=== PATIENT | female | born 1955 | race Caucasian/White ===

== ENCOUNTER 2017-05-10 16:03 | Inpatient (IN) | payer OTHER, SELFPAY ==
[2017-04-08 12:53] VITALS: BMI 25.7
[2017-05-10] VITALS (9 sets, daily range): BP systolic 161–186; BP diastolic 74–92; PULSE 99–113; RESP 16–31; TEMP 36.6–37; O2SAT 93–99; BMI 26.8; BMI 27.1
--- NOTE | 2017-05-10 16:20 | EKG12_ITS ---
Test Reason : SOB Blood Pressure : / mmHG Vent. Rate : 110 BPM Atrial Rate : 110 BPM P-R Int : 116 ms QRS Dur : 084 ms QT Int : 324 ms P-R-T Axes : 049 049 095 degrees QTc Int : 438 ms Sinus tachycardia with occasional premature ectopic complexes Nonspecific ST and T wave abnormality Abnormal ECG Confirmed by JULIANA HICKS, SASCHA ([id number]), advertising editor KOREY COOPER ([id number]) on 05/12/2017 1:23:10 PM Referred By: DYLAN Confirmed By:SASCHA ANDREWS MD
--- NOTE | 2017-05-10 16:20 | RAD_ITS ---
STUDY: X-RAY CHEST REASON FOR EXAM: Female, 61 years old. Dyspnea with cough and back pain. TECHNIQUE: Single frontal view of the chest. COMPARISON: February 15, 2017 FINDINGS: Jugular catheter remains unchanged. There is a new opacity at the left base compatible with pneumonia. There is a small left effusion. Normal size heart. Normal mediastinum and klaus. Normal visualized pulmonary arteries. Normal visualized aortic arch and descending thoracic aorta. Normal visualized thoracic spine. Normal visualized ribs, clavicles, and shoulders. There is no demonstrated abnormality of the visualized soft tissue structures of the upper abdomen. RAD/Chest 1 View (Portable) IMPRESSION: New left lower lobe pneumonia with effusion. Electronically Signed: Teddy Humphrey MD at 17:15 EST , Service support ,
[2017-05-10] MEDS: Ipratropium/Albuterol Sulfate 3 ML AMPUL.NEB INHALATION ×2 (16:39→20:04)
[2017-05-10] MEDS: Albuterol 2.5 MG/3 ML VIAL.NEB. INHALATION (16:39)
[2017-05-10 16:54] LABS: Absolute Lymphocyte Count 0.41 X10^3/ul (0.83-4.51); Absolute Neutrophil Count 5.7 X10^3/uL (2.0-7.7); Basophil# 0.01 X10^3/uL; Basophil% 0.2 % (0-1); Hematocrit 28.4 % (37-47); Hemoglobin 9.2 g/dl (12.0-15.0); Lymphocyte # 0.41 X10^3/ul (4.0); Lymphocyte % 6.3 % (19-41); Mean Corp Hgb Conc 32.4 g/gl (32-36); Mean Corpuscular Hgb 28.9 pg (27.0-32.0); Mean Corpuscular Volume 89.3 fL (81-99); Mean Platelet Vol. 9.2 fl (6.2-12.0); Monocyte# 0.46 X10^3/uL; Neutrophil # 5.65 X10^3/uL (2.7-7.7); Platelet Count 130 K/mm3 (150-450); RBC Distribution Width CV 20.7 % (11.6-14.6); RBC Distribution Width SD 66.7 fl (35.1-43.9); Red Blood Count 3.18 M/mm3 (4.2-5.4); White Blood Count 6.6 K/mm3 (4.4-11.0)
[2017-05-10 16:55] LABS: Differential Indicated SCAN CRITERIA MET; POSITIVE COUNT NO; POSITIVE DIFFERENTIAL YES; POSITIVE MORPHOLOGY YES
[2017-05-10 17:07] LABS: Anion Gap 9 (5-15); BUN 22 mg/dL (7-18); BUN/Creat Ratio 39.2 RATIO (10-20); Calcium,Total 8.6 mg/dL (8.5-10.1); Chloride 101 mmol/L (98-107); Creatinine, Serum 0.56 mg/dL (0.55-1.02); EST Glomerular Filtration Rate 116 mL/min (>60); Est Glom Filt Rate - Afr Amer 140 mL/min (>60); Estimated Creatinine Clearance 88.79 ml/min; Glucose 190 mg/dL (74-106); Potassium 3.2 mmol/L (3.5-5.1); Sodium Level 139 mmol/L (136-145)
[2017-05-10 17:14] LABS: Anisocytosis 1+; Hypochromasia 2+; Platelet Estimate ADEQUATE (ADEQ)
[2017-05-10] MEDS: 0.9% Normal Saline 1,000 ML 150 ML IV (17:17)
[2017-05-10 17:25] LABS: BNP,B-Type NATRIURETIC PEPTIDE 110.9 pg/mL (0-100)
[2017-05-10 17:37] LABS: Lactic Acid 1.2 mmol/L (0.4-2.0)
--- NOTE | 2017-05-10 17:48 | ED.VISSUMM ---
- ER Visit Summary Date of Service: 05/10/17 Chief Complaint: Cough, shortness of breath History of Present Illness: The patient is a 61 F medical history significant for small cell lung cancer who is currently undergoing chemotherapy with Dr. Saldivar presents to the emergency department with cough and shortness of breath. The patient symptoms began about 5 days ago. She states she had a mild cough with some scant sputum. She states normally her cough is dry. She denies any fevers or chills. She states that she has begun to have some pain in her left back especially with coughing. She denies any recent antibiotics. She denies any chest pain but does admit to some mild shortness of breath. The patient did have chemotherapy on the first of this month. She denies any history of neutropenia. Physical Examination: Vital signs reviewed General: Well-nourished, well-developed Head: Normocephalic, atraumatic Eyes: Pupils equal and reactive, extraocular muscles intact Neck, supple, no lymphadenopathy Heart: Regular rate and rhythm Respiratory: Menest in the left base, mild wheezing Abdomen: Soft, nontender, nondistended, no peritoneal signs Back: Nontender Extremities: Nontender, no edema, no cords Skin: Normal color no rash Neuro: Alert and oriented, no focal or lateralizing deficits Test Results: Screening labs relatively unremarkable. Patient's lactate is normal. BNP is mildly elevated at 110. EKG shows a sinus tachycardia without acute ischemic change. Chest x-ray demonstrates a left lower lobe infiltrate. Emergency Department Course and Treatment: She did have wheezing throughout and was diminished in the left base. She was given breathing treatments with some improvement of her aeration. Her labs are relatively unremarkable. She has a normal lactate. The patient has been persistently tachycardic. Her x-ray does demonstrate a left lower lobe infiltrate with small effusion. With her history of immunosuppression, malignancy, and dyspnea I do for the patient's can require admission. She does not appear to have evidence of severe sepsis. She is treated with healthcare associated pneumonia antibiotics. I discussed the patient with oncology and the hospitalist. She will be admitted at this time. Treatment Plan: [] Disposition: [place] Impression:. Healthcare associated pneumonia 2. Dyspnea 3. Left pleural effusion This note was generated with [employer] software. It may contain incorrect words, spelling, and punctuation that were not noted in review of the chart prior to signing ED Disposition - Plan for ED Patient: Chief Complaint: Shortness of Breath Referrals: Roe Small MD [Primary Care Provider] -
--- NOTE | 2017-05-10 18:27 | PCM.HP.STD ---
Problem List (1) HTN (hypertension) Status: Chronic (2) GERD (gastroesophageal reflux disease) Status: Chronic (3) Hyponatremia Status: Chronic (4) Bone metastases Status: Chronic (5) HLD (hyperlipidemia) Status: Chronic (6) Liver metastases Status: Chronic (7) Small cell lung cancer Status: Chronic Qualifiers: (8) Stage 2 moderate COPD by GOLD classification Status: Chronic Comment: FEV1 54% History of Present Illness Date of Admission: 05/10/17 Chief Complaint: Cough, Shortness of breath. The patient is a 61 year old F with past medical history as mentioned above presented to the emergency room because of cough and shortness of breath. Her illness started 5 days ago with productive cough with small to moderate amount of yellow to clear sputum, associated with shortness of breath on mild to moderate activity which was relieved by rest and aggravated by activity. Denied fever or chills. She mentioned that she has been having left flank pain because of coughing. She denied chest pain, palpitation, dizziness or lightheadedness. She denied abdominal pain, nausea or vomiting. She had a history of metastatic small cell lung cancer with metastasis to liver and bone, status post radiation therapy and currently on chemotherapy, last session of chemotherapy was May 01, 2017. She had a history of COPD, quit smoking and she has been on inhaler treatment but never been on home oxygen. She has history of hypertension which seemed to be under control with metoprolol. In the emergency room, she was afebrile, tachycardic, blood pressure was elevated and pulse ox was 95% on room air. Her routine blood work was remarkable for hemoglobin of 9.2 g/dL, platelet count of 132,000 and potassium of 3.2, otherwise normal. Her lactic acid was normal. EKG revealed sinus tachycardia, no acute findings. Chest x-ray showed left lower lobe infiltrate and small effusion. She is being admitted for left lower lobe healthcare associated pneumonia with sepsis Past Medical History Past Medical History (Chronic Problems): Chronic Problems (Last Reviewed 04/17/17 @ 08:45 by Bhumika Barros) HTN (hypertension) (Chronic) Former smoker (Chronic) quit in July 2016 Colon polyps (Chronic) GERD (gastroesophageal reflux disease) (Chronic) Hyponatremia (Chronic) Bone metastases (Chronic) HLD (hyperlipidemia) (Chronic) Liver metastases (Chronic) Small cell lung cancer (Chronic) Stage 2 moderate COPD by GOLD classification (Chronic) FEV1 54% Allergies amlodipine Allergy (Severe, Verified 05/10/17 16:06) Swelling swelling in legs azithromycin Allergy (Severe, Verified 05/10/17 16:06) Pt doesn't remember lisinopril Adverse Reaction (Mild, Verified 05/10/17 16:06) Other COUGH Home Medications: Ambulatory Orders Medication Instructions Recorded Montelukast Sodium [Singulair] 10 mg PO QHS 06/08/16 Pravastatin Sodium 40 mg PO QHS 07/17/16 Budesonide/Formoterol 80-4.5 2 puff INHALATION BID 01/22/17 [Symbicort 80-4.5 Mcg Inhaler] Docusate Sodium [Colace] 100 mg PO DAILY 01/22/17 Metoprolol Tartrate [Lopressor 25 mg PO DAILY 01/22/17 (beta marzena)] Pantoprazole Sodium [Protonix] 20 mg PO DAILY PRN PRN 01/22/17 Acetaminophen [Tylenol Tablet] 325 - 650 mg PO Q6H PRN PRN tablet 01/23/17 Dronabinol [Marinol] 2.5 mg PO BIDAC #60 capsule 01/23/17 Mirtazapine [Remeron] 15 mg PO QHS #30 tab 04/16/17 Olanzapine 10 mg PO DAILY #30 tab 04/16/17 Potassium Phosphate,Monobasic 500 mg PO DAILY #30 tablet.[place] 05/01/17 [K-Phos Original] Dexamethasone 4 mg PO DAILY 05/10/17 Ondansetron [Zofran] 4 mg PO Q12H PRN PRN 05/10/17 Sodium Chloride 1 gm PO TID 05/10/17 Surgical History: noncontributory Psychiatric History: No pertinent psych hx [employer] History: No pertinent [employer] history Lives: Spouse/ Significant Other Smoking Status: Former smoker Alcohol: None Drugs: None - *Family History Maternal History Items: - - breast cancer Paternal History Items: Hypertension Review of Systems Constitutional: Reports: Anorexia. Denies: Chills, Fever, Weakness Eyes: Denies: Blurred vision, Double vision, Drainage, Redness HEENT: Denies: Difficulty Hearing, Ear Pain, Eye Pain, Nasal Congestion, Sore Throat Cardiovascular: Denies: Chest Pain, Chest Pressure, Heaviness, Light Headedness, Orthopnea, Paroxysmal Noc. Dyspnea, Syncope Respiratory: Reports: Cough, Shortness of Breath, Shortness of breath upon exertion, Sputum production. Denies: Hemoptysis, Pleuritic Pain, Wheezing Gastrointestinal: Denies: Abdominal Pain, Constipation, Diarrhea, Nausea, Vomiting Genitourinary: Denies: Dysuria, Frequency, Hematuria Musculoskeletal: Denies: Arm Pain, Back Pain Skin: Denies: Dryness, Rash Neurological: Denies: Balance problems, Double vision, Change in Speech, Slurred speech, Headaches, Incoordination, Numbness Psychiatric: Denies: Anxiety, Depression VTE Information - Inpt Only VTE Present on Admission: No VTE Mechan Device Prophylaxis: None VTE Pharm Prophylaxis ordered?: Yes - Physical Exam General: Alert, Oriented x3, Cooperative, No apparent distress HEENT: Atraumatic, PERRLA, EOMI Oral: Moist Mucosa, No Gingival or Mucosal Lesions/ Ulcerations Neck: Supple, No JVD, Negative Carotid Bruits, Trachea Midline, Thyroid Normal Size and Texture Lungs: No rhonchi, No wheeze, Diminished, Rales, - - decreased breath sounds on the left base, coarse crackles in the left base. Cardiovascular: Regular rate, Regular Rhythm, Normal S1, Normal S2, No murmurs, PMI Normal, Tachycardic Abdomen: Bowel Sounds Present, Soft, Non Tender, Non-Distended, No Hepato-splenomegaly Extremities: No clubbing, No cyanosis, Edema - Trace edema. Skin: No rashes, No breakdown Lymphatic: No Cervical, Supraclavicular, or Inguinal Adenopathy Neurological: Cranial nerves II-XII grossly intact, Motor Exam 5/5 strength throughout Psych/Mental Status: Normal Affect, Appropriate, Alert and oriented to time, place, person, mood and affect Vital Signs Temp Pulse Resp BP Pulse Ox 98.1 F 111 H 20 H 173/81 H 99 05/10/17 16:04 05/10/17 18:19 05/10/17 18:19 05/10/17 18:19 05/10/17 18:19 Oxygen Delivery Method Room Air Laboratory Tests 05/10/17 05/10/17 05/10/17 Range/Units 16:37 16:37 16:37 WBC (4.4-11.0) K/mm3 RBC (4.2-5.4) M/mm3 Hgb (12.0-15.0) g/dl Hct (37-47) % MCV (81-99) fL MCH (27.0-32.0) pg MCHC (32-36) g/gl RDW (11.6-14.6) % RDW Differential (35.1-43.9) fl Plt Count (150-450) K/mm3 MPV (6.2-12.0) fl Immature Gran % (Auto) (0.0-0.9) % Neut % (Auto) (47-70) % Lymph % (Auto) (19-41) % Dougherty % (Auto) (0-10) % Eos % (Auto) (0-5) % Baso % (Auto) (0-1) % Absolute Neuts (auto) (2.0-7.7) X10^3/uL Absolute Lymphs (auto) (0.83-4.51) X10^3/ul Total Counted Platelet Estimate (ADEQ) Hypochromasia Anisocytosis Sodium 139 (136-145) mmol/L Potassium 3.2 L (3.5-5.1) mmol/L Chloride 101 (98-107) mmol/L Carbon Dioxide 29.0 (21.0-32.0) mmol/L Anion Gap 9 (5-15) BUN 22 H (7-18) mg/dL Creatinine 0.56 (0.55-1.02) mg/dL Estim Creat Clear Calc 88.79 ml/min Est GFR (MDRD) Af Amer 140 (>60) mL/min Est GFR (MDRD) Non-Af 116 (>60) mL/min BUN/Creatinine Ratio 39.2 H (10-20) RATIO Glucose 190 H (74-106) mg/dL Lactic Acid 1.2 (0.4-2.0) mmol/L Calcium 8.6 (8.5-10.1) mg/dL B-Natriuretic Peptide 110.9 H (0-100) pg/mL 05/10/17 Range/Units 16:37 WBC 6.6 (4.4-11.0) K/mm3 RBC 3.18 L (4.2-5.4) M/mm3 Hgb 9.2 L (12.0-15.0) g/dl Hct 28.4 L (37-47) % MCV 89.3 (81-99) fL MCH 28.9 (27.0-32.0) pg MCHC 32.4 (32-36) g/gl RDW 20.7 H (11.6-14.6) % RDW Differential 66.7 H (35.1-43.9) fl Plt Count 130 L (150-450) K/mm3 MPV 9.2 (6.2-12.0) fl Immature Gran % (Auto) 0.500 (0.0-0.9) % Neut % (Auto) 86.0 H (47-70) % Lymph % (Auto) 6.3 L (19-41) % Dougherty % (Auto) 7.0 (0-10) % Eos % (Auto) 0.0 (0-5) % Baso % (Auto) 0.2 (0-1) % Absolute Neuts (auto) 5.7 (2.0-7.7) X10^3/uL Absolute Lymphs (auto) 0.41 L (0.83-4.51) X10^3/ul Total Counted Not Reportable Platelet Estimate ADEQUATE (ADEQ) Hypochromasia 2+ Anisocytosis 1+ Sodium (136-145) mmol/L Potassium (3.5-5.1) mmol/L Chloride (98-107) mmol/L Carbon Dioxide (21.0-32.0) mmol/L Anion Gap (5-15) BUN (7-18) mg/dL Creatinine (0.55-1.02) mg/dL Estim Creat Clear Calc ml/min Est GFR (MDRD) Af Amer (>60) mL/min Est GFR (MDRD) Non-Af (>60) mL/min BUN/Creatinine Ratio (10-20) RATIO Glucose (74-106) mg/dL Lactic Acid (0.4-2.0) mmol/L Calcium (8.5-10.1) mg/dL B-Natriuretic Peptide (0-100) pg/mL Clinical Impression(s) from Imaging Studies Chest X-Ray 05/10/17 16:20 IMPRESSION: New left lower lobe pneumonia with effusion. Electronically Signed: Teddy Humphrey MD at 17:15 EST , Service support , Assessment/Plan This is a 61 years old female patient presented to the emergency room because of productive cough and shortness of breath, found to have left lower lobe infiltrate consistent with left lower lobe healthcare associated pneumonia with sepsis. #1 left lower lobe healthcare associated pneumonia/sepsis: Chest x-ray reviewed. Patient is on chemotherapy for metastatic small cell lung cancer, last session was on May 01, 2017. She meets sepsis criteria based on tachycardia and documented source of infection. Blood culture sent, received 1 dose of IV vancomycin and Zosyn. Plan: Admit to [facility] floor, stat urinalysis, urine culture, sputum culture, respiratory panel for viruses, pneumococcal and Legionella antigen, start IV vancomycin and Zosyn, bronchodilators, incentive spirometer, chest physiotherapy, IV fluids, PT OT evaluation and treatment. #2 hypokalemia: Plan to replace potassium with potassium chloride added to the IV fluids, repeat BMP tomorrow morning. She is not on any diuretics. #3 metastatic small cell lung cancer: With metastasis to liver and bone. status post radiation therapy, currently on chemotherapy. He follows up with , he will be notified. #4 anemia/thrombocytopenia: This is likely because of chemotherapy. Her baseline hemoglobin has been around 11-12 g/dL. No evidence of active bleeding. No indication for transfusion. Platelet count is 130,000, actually improved from platelet count on May 01, 2017 which is likely because of chemotherapy. Plan to repeat CBC tomorrow morning, pro time and INR. #5 COPD: Clinically stable, pulse ox is normal on room air. Plan: DuoNeb every 6 hours, albuterol as needed, incentive spirometer, chest physiotherapy. #6 hypertension: Blood pressure is elevated. Continue metoprolol, start IV metoprolol as needed to treat both hypertension and tachycardia. #7 hyperlipidemia: Continue statins. #8 GERD: Continue PPI. #8 DVT prophylaxis: Subcu Lovenox, monitor platelet count. This note was generated with [employer] dictation software. It may contain incorrect words, spelling, and punctuation that were not noted in checking the note before signing. Code Visit Inpatient E&M: 04779 Init Hosp L3
--- NOTE | 2017-05-10 18:33 | HP.PCM_ITS ---
Problem List (1) HTN (hypertension) Status: Chronic (2) GERD (gastroesophageal reflux disease) Status: Chronic (3) Hyponatremia Status: Chronic (4) Bone metastases Status: Chronic (5) HLD (hyperlipidemia) Status: Chronic (6) Liver metastases Status: Chronic (7) Small cell lung cancer Status: Chronic Qualifiers: (8) Stage 2 moderate COPD by GOLD classification Status: Chronic Comment: FEV1 54% History of Present Illness Date of Admission: 05/10/17 Chief Complaint: Cough, Shortness of breath. The patient is a 61 year old F with past medical history as mentioned above presented to the emergency room because of cough and shortness of breath. Her illness started 5 days ago with productive cough with small to moderate amount of yellow to clear sputum, associated with shortness of breath on mild to moderate activity which was relieved by rest and aggravated by activity. Denied fever or chills. She mentioned that she has been having left flank pain because of coughing. She denied chest pain, palpitation, dizziness or lightheadedness. She denied abdominal pain, nausea or vomiting. She had a history of metastatic small cell lung cancer with metastasis to liver and bone, status post radiation therapy and currently on chemotherapy, last session of chemotherapy was May 01, 2017. She had a history of COPD, quit smoking and she has been on inhaler treatment but never been on home oxygen. She has history of hypertension which seemed to be under control with metoprolol. In the emergency room, she was afebrile, tachycardic, blood pressure was elevated and pulse ox was 95% on room air. Her routine blood work was remarkable for hemoglobin of 9.2 g/dL, platelet count of 132,000 and potassium of 3.2, otherwise normal. Her lactic acid was normal. EKG revealed sinus tachycardia, no acute findings. Chest x-ray showed left lower lobe infiltrate and small effusion. She is being admitted for left lower lobe healthcare associated pneumonia with sepsis Past Medical History Past Medical History (Chronic Problems): Chronic Problems (Last Reviewed 04/17/17 @ 08:45 by Bhumika Barros) HTN (hypertension) (Chronic) Former smoker (Chronic) quit in July 2016 Colon polyps (Chronic) GERD (gastroesophageal reflux disease) (Chronic) Hyponatremia (Chronic) Bone metastases (Chronic) HLD (hyperlipidemia) (Chronic) Liver metastases (Chronic) Small cell lung cancer (Chronic) Stage 2 moderate COPD by GOLD classification (Chronic) FEV1 54% Allergies amlodipine Allergy (Severe, Verified 05/10/17 16:06) Swelling swelling in legs azithromycin Allergy (Severe, Verified 05/10/17 16:06) Pt doesn't remember lisinopril Adverse Reaction (Mild, Verified 05/10/17 16:06) Other COUGH Home Medications: Ambulatory Orders Medication Instructions Recorded Montelukast Sodium [Singulair] 10 mg PO QHS 06/08/16 Pravastatin Sodium 40 mg PO QHS 07/17/16 Budesonide/Formoterol 80-4.5 2 puff INHALATION BID 01/22/17 [Symbicort 80-4.5 Mcg Inhaler] Docusate Sodium [Colace] 100 mg PO DAILY 01/22/17 Metoprolol Tartrate [Lopressor 25 mg PO DAILY 01/22/17 (beta marzena)] Pantoprazole Sodium [Protonix] 20 mg PO DAILY PRN PRN 01/22/17 Acetaminophen [Tylenol Tablet] 325 - 650 mg PO Q6H PRN PRN tablet 01/23/17 Dronabinol [Marinol] 2.5 mg PO BIDAC #60 capsule 01/23/17 Mirtazapine [Remeron] 15 mg PO QHS #30 tab 04/16/17 Olanzapine 10 mg PO DAILY #30 tab 04/16/17 Potassium Phosphate,Monobasic 500 mg PO DAILY #30 tablet.[place] 05/01/17 [K-Phos Original] Dexamethasone 4 mg PO DAILY 05/10/17 Ondansetron [Zofran] 4 mg PO Q12H PRN PRN 05/10/17 Sodium Chloride 1 gm PO TID 05/10/17 Surgical History: noncontributory Psychiatric History: No pertinent psych hx 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 Denies: Chills, Fever, Weakness Eyes: Denies: Blurred vision, Double vision, Drainage, Redness HEENT: Denies: Difficulty Hearing, Ear Pain, Eye Pain, Nasal Congestion, Sore Throat Cardiovascular: Denies: Chest Pain, Chest Pressure, Heaviness, Light Headedness , Orthopnea, Paroxysmal Noc. Dyspnea, Syncope Respiratory: Reports: Cough, Shortness of Breath, Shortness of breath upon exertion, Sputum production. Denies: Hemoptysis, Pleuritic Pain, Wheezing Gastrointestinal: Denies: Abdominal Pain, Constipation, Diarrhea, Nausea, Vomiting Genitourinary: Denies: Dysuria, Frequency, Hematuria Musculoskeletal: Denies: Arm Pain, Back Pain Skin: Denies: Dryness, Rash Neurological: Denies: Balance problems, Double vision, Change in Speech, Slurred speech, Headaches, Incoordination, Numbness Psychiatric: Denies: Anxiety, Depression VTE Information - Inpt Only VTE Present on Admission: No VTE Mechan Device Prophylaxis: None VTE Pharm Prophylaxis ordered?: Yes - Physical Exam General: Alert, Oriented x3, Cooperative, No apparent distress HEENT: Atraumatic, PERRLA, EOMI Oral: Moist Mucosa, No Gingival or Mucosal Lesions/ Ulcerations Neck: Supple, No JVD, Negative Carotid Bruits, Trachea Midline, Thyroid Normal Size and Texture Lungs: No rhonchi, No wheeze, Diminished, Rales, - - decreased breath sounds on the left base, coarse crackles in the left base. Cardiovascular: Regular rate, Regular Rhythm, Normal S1, Normal S2, No murmurs, PMI Normal, Tachycardic Abdomen: Bowel Sounds Present, Soft, Non Tender, Non-Distended, No Hepato- splenomegaly Extremities: No clubbing, No cyanosis, Edema - Trace edema. Skin: No rashes, No breakdown Lymphatic: No Cervical, Supraclavicular, or Inguinal Adenopathy Neurological: Cranial nerves II-XII grossly intact, Motor Exam 5/5 strength throughout Psych/Mental Status: Normal Affect, Appropriate, Alert and oriented to time, place, person, mood and affect Vital Signs Temp Pulse Resp BP Pulse Ox 98.1 F 111 H 20 H 173/81 H 99 05/10/17 16:04 05/10/17 18:19 05/10/17 18:19 05/10/17 18:19 05/10/17 18:19 Oxygen Delivery Method Room Air Laboratory Tests 3 05/10/17 05/10/17 05/10/17 Range/Units 16:37 16:37 16:37 WBC (4.4-11.0) K/mm3 RBC (4.2-5.4) M/mm3 Hgb (12.0-15.0) g/dl Hct (37-47) % MCV (81-99) fL MCH (27.0-32.0) pg MCHC (32-36) g/gl RDW (11.6-14.6) % RDW Differential (35.1-43.9) fl Plt Count (150-450) K/mm3 MPV (6.2-12.0) fl Immature Gran % (Auto) (0.0-0.9) % Neut % (Auto) (47-70) % Lymph % (Auto) (19-41) % [place] % (Auto) (0-10) % Eos % (Auto) (0-5) % Baso % (Auto) (0-1) % Absolute Neuts (auto) (2.0-7.7) X10^3/uL Absolute Lymphs (auto) (0.83-4.51) X10^3/ul Total Counted Platelet Estimate (ADEQ) Hypochromasia Anisocytosis Sodium 139 (136-145) mmol/L Potassium 3.2 L (3.5-5.1) mmol/L Chloride 101 (98-107) mmol/L Carbon Dioxide 29.0 (21.0-32.0) mmol/L Anion Gap 9 (5-15) BUN 22 H (7-18) mg/dL Creatinine 0.56 (0.55-1.02) mg/dL Estim Creat Clear Calc 88.79 ml/min Est GFR (MDRD) Af Amer 140 (>60) mL/min Est GFR (MDRD) Non-Af 116 (>60) mL/min BUN/Creatinine Ratio 39.2 H (10-20) RATIO Glucose 190 H (74-106) mg/dL Lactic Acid 1.2 (0.4-2.0) mmol/L Calcium 8.6 (8.5-10.1) mg/dL B-Natriuretic Peptide 110.9 H (0-100) pg/mL 3 05/10/17 Range/Units 16:37 WBC 6.6 (4.4-11.0) K/mm3 RBC 3.18 L (4.2-5.4) M/mm3 Hgb 9.2 L (12.0-15.0) g/dl Hct 28.4 L (37-47) % MCV 89.3 (81-99) fL MCH 28.9 (27.0-32.0) pg MCHC 32.4 (32-36) g/gl RDW 20.7 H (11.6-14.6) % RDW Differential 66.7 H (35.1-43.9) fl Plt Count 130 L (150-450) K/mm3 MPV 9.2 (6.2-12.0) fl Immature Gran % (Auto) 0.500 (0.0-0.9) % Neut % (Auto) 86.0 H (47-70) % Lymph % (Auto) 6.3 L (19-41) % [place] % (Auto) 7.0 (0-10) % Eos % (Auto) 0.0 (0-5) % Baso % (Auto) 0.2 (0-1) % Absolute Neuts (auto) 5.7 (2.0-7.7) X10^3/uL Absolute Lymphs (auto) 0.41 L (0.83-4.51) X10^3/ul Total Counted Not Reportable Platelet Estimate ADEQUATE (ADEQ) Hypochromasia 2+ Anisocytosis 1+ Sodium (136-145) mmol/L Potassium (3.5-5.1) mmol/L Chloride (98-107) mmol/L Carbon Dioxide (21.0-32.0) mmol/L Anion Gap (5-15) BUN (7-18) mg/dL Creatinine (0.55-1.02) mg/dL Estim Creat Clear Calc ml/min Est GFR (MDRD) Af Amer (>60) mL/min Est GFR (MDRD) Non-Af (>60) mL/min BUN/Creatinine Ratio (10-20) RATIO Glucose (74-106) mg/dL Lactic Acid (0.4-2.0) mmol/L Calcium (8.5-10.1) mg/dL B-Natriuretic Peptide (0-100) pg/mL Clinical Impression(s) from Imaging Studies Chest X-Ray 05/10/17 16:20 IMPRESSION: New left lower lobe pneumonia with effusion. Electronically Signed: Teddy Humphrey MD at 17:15 EST , Service support , Assessment/Plan This is a 61 years old female patient presented to the emergency room because of productive cough and shortness of breath, found to have left lower lobe infiltrate consistent with left lower lobe healthcare associated pneumonia with sepsis. #1 left lower lobe healthcare associated pneumonia/sepsis: Chest x-ray reviewed. Patient is on chemotherapy for metastatic small cell lung cancer, last session was on May 01, 2017. She meets sepsis criteria based on tachycardia and documented source of infection. Blood culture sent, received 1 dose of IV vancomycin and Zosyn. Plan: Admit to [facility] floor, stat urinalysis , urine culture, sputum culture, respiratory panel for viruses, pneumococcal and Legionella antigen, start IV vancomycin and Zosyn, bronchodilators, incentive spirometer, chest physiotherapy, IV fluids, PT OT evaluation and treatment. #2 hypokalemia: Plan to replace potassium with potassium chloride added to the IV fluids, repeat BMP tomorrow morning. She is not on any diuretics. #3 metastatic small cell lung cancer: With metastasis to liver and bone. status post radiation therapy, currently on chemotherapy. He follows up with , he will be notified. #4 anemia/thrombocytopenia: This is likely because of chemotherapy. Her baseline hemoglobin has been around 11-12 g/dL. No evidence of active bleeding. No indication for transfusion. Platelet count is 130,000, actually improved from platelet count on May 01, 2017 which is likely because of chemotherapy. Plan to repeat CBC tomorrow morning, pro time and INR. #5 COPD: Clinically stable, pulse ox is normal on room air. Plan: DuoNeb every 6 hours, albuterol as needed, incentive spirometer, chest physiotherapy. #6 hypertension: Blood pressure is elevated. Continue metoprolol, start IV metoprolol as needed to treat both hypertension and tachycardia. #7 hyperlipidemia: Continue statins. #8 GERD: Continue PPI. #8 DVT prophylaxis: Subcu Lovenox, monitor platelet count. This note was generated with [employer] dictation software. It may contain incorrect words, spelling, and punctuation that were not noted in checking the note before signing. Code Visit Inpatient E&M: 21770 Init Hosp L3
[2017-05-10 19:12] LABS: International Normalized Ratio 1.2; Prothrombin Time (Protime)PT. 14.8 SECONDS (11.7-14.9)
[2017-05-10 19:19] LABS: Magnesium 1.9 mg/dL (1.6-2.6)
[2017-05-10 20:18] LABS: Color, Urine Yellow (Yellow); Glucose, Dipstick 250 mg/dl (Normal); Ketone-Dipstick Negative (Negative); Leukocyte Esterase-Dipstick 25 /ul (Negative); Nitrite-Dipstick Negative (Negative); Occult Blood-Urine 50 /ul (Negative); Protein-Dipstick 100 mg/dl (Negative); Urine Bilirubin Dipstick Negative (Negative); Urine Clarity Clear (Clear); Urine Urobilinogen Normal (Normal)
[2017-05-10] MEDS: Montelukast 10 MG Tablet PO (22:41)
[2017-05-10] MEDS: Mirtazapine 15 MG Tablet PO (22:41)
[2017-05-10] MEDS: Pravastatin 40 MG Tablet PO (22:41)
[2017-05-10] MEDS: guaiFENesin 1,200 MG Tablet 1200 MG PO (22:41)
[2017-05-10] MEDS: Metoprolol Tartrate 5 MG/5 ML Vial IV (22:53)
[2017-05-11] VITALS (21 sets, daily range): BP systolic 153–194; BP diastolic 71–97; PULSE 86–120; RESP 16–20; TEMP 36.4–37; O2SAT 93–97
[2017-05-11] MEDS: guaiFENesin Dm 10 ML UDC PO ×2 (00:15→17:05)
[2017-05-11] MEDS: Ipratropium/Albuterol Sulfate 3 ML AMPUL.NEB INHALATION ×4 (00:43→19:24)
[2017-05-11] MEDS: Piperacil/Tazobactam 3.375 GM/50 ML ML IV ×3 (05:37→21:36)
[2017-05-11] MEDS: Enoxaparin 30 MG/0.3 ML Syringe SC (05:41)
[2017-05-11 07:13] LABS: Absolute Lymphocyte Count 0.14 X10^3/ul (0.83-4.51); Absolute Neutrophil Count 4.6 X10^3/uL (2.0-7.7); Basophil# 0.01 X10^3/uL; Basophil% 0.2 % (0-1); Hematocrit 27.5 % (37-47); Hemoglobin 8.8 g/dl (12.0-15.0); Lymphocyte # 0.14 X10^3/ul (4.0); Lymphocyte % 2.6 % (19-41); Mean Corpuscular Hgb 28.8 pg (27.0-32.0); Mean Corpuscular Volume 89.9 fL (81-99); Mean Platelet Vol. 8.8 fl (6.2-12.0); Monocyte# 0.52 X10^3/uL; Monocyte% 9.8 % (0-10); Neutrophil # 4.58 X10^3/uL (2.7-7.7); Neutrophil % 86.6 % (47-70); Platelet Count 127 K/mm3 (150-450); RBC Distribution Width CV 20.9 % (11.6-14.6); RBC Distribution Width SD 67.4 fl (35.1-43.9); Red Blood Count 3.06 M/mm3 (4.2-5.4); White Blood Count 5.3 K/mm3 (4.4-11.0)
[2017-05-11 07:15] LABS: Differential Indicated SCAN CRITERIA MET; POSITIVE COUNT NO; POSITIVE DIFFERENTIAL YES; POSITIVE MORPHOLOGY YES
[2017-05-11 07:20] LABS: Anion Gap 7 (5-15); BUN 10 mg/dL (7-18); BUN/Creat Ratio 33.9 RATIO (10-20); Calcium,Total 8.4 mg/dL (8.5-10.1); Chloride 103 mmol/L (98-107); EST Glomerular Filtration Rate 243 mL/min (>60); Est Glom Filt Rate - Afr Amer 294 mL/min (>60); Estimated Creatinine Clearance 165.75 ml/min; Glucose 143 mg/dL (74-106); Potassium 3.1 mmol/L (3.5-5.1); Sodium Level 136 mmol/L (136-145)
[2017-05-11 07:36] LABS: Anisocytosis 1+
[2017-05-11] MEDS: Metoprolol Tartrate 25 MG Tablet PO (07:50)
[2017-05-11] MEDS: OLANZapine 10 MG Tablet PO (07:50)
[2017-05-11] MEDS: Pantoprazole Sodium 40 MG Tablet PO (07:50)
[2017-05-11] MEDS: guaiFENesin 1,200 MG Tablet 1200 MG PO ×2 (07:50→21:36)
[2017-05-11] MEDS: Dronabinol 2.5 MG Capsule PO ×2 (08:00→17:05)
--- NOTE | 2017-05-11 09:01 | PN_ITS ---
Subjective: Chief complaint: Follow-up after admission for left lower lobe healthcare associated pneumonia with sepsis. Patient seen and examined. No acute events overnight. Shortness of breath improved, still complaining of dry cough, no sputum production. Her vital signs has been stable, afebrile overnight. - Physical Exam General: Alert, Oriented x3, Cooperative, No apparent distress HEENT: Atraumatic, PERRLA, EOMI Oral: Moist Mucosa, No Gingival or Mucosal Lesions/ Ulcerations Neck: Supple, No JVD, Negative Carotid Bruits, Trachea Midline, Thyroid Normal Size and Texture Lungs: No rhonchi, No wheeze, Diminished, Rales, - - Decreased breath sounds on the left base with crackles. Cardiovascular: Regular rate, Regular Rhythm, Normal S1, Normal S2, No murmurs, PMI Normal Abdomen: Bowel Sounds Present, Soft, Non Tender, Non-Distended, No Hepato- splenomegaly Extremities: No clubbing, No cyanosis, Edema - Trace edema. Skin: No rashes, No breakdown Lymphatic: No Cervical, Supraclavicular, or Inguinal Adenopathy Neurological: Cranial nerves II-XII grossly intact, Motor Exam 5/5 strength throughout Psych/Mental Status: Normal Affect, Appropriate Vital Signs Temp Pulse Resp BP Pulse Ox 98.6 F 98 18 153/71 H 96 05/11/17 07:54 05/11/17 07:54 05/11/17 07:54 05/11/17 07:54 05/11/17 07:54 Oxygen Delivery Method Room Air Weight: 158 lb 11.725 oz Body Mass Index (BMI) 27.1 Intake and Output for Last 24 Hours 05/09/17 05/10/17 05/11/17 23:59 23:59 23:59 Intake Total 1845 / 1845 Balance 1845 / 1845 Microbiology Past 72 Hours 05/10/17 19:35 Streptococcus pneumoniae Antigen (M - Final Urine, Clean Catch 05/10/17 19:35 Legionella Antigen - Final Urine, Clean Catch Laboratory Tests Past 24 Hrs 05/10/17 05/11/17 05/11/17 19:35 06:45 06:45 WBC 5.3 RBC 3.06 L Hgb 8.8 L Hct 27.5 L MCV 89.9 MCH 28.8 MCHC 32.0 RDW 20.9 H RDW Differential 67.4 H Plt Count 127 L MPV 8.8 Immature Gran % (Auto) 0.800 Neut % (Auto) 86.6 H Lymph % (Auto) 2.6 L [place] % (Auto) 9.8 Eos % (Auto) 0.0 Baso % (Auto) 0.2 Absolute Neuts (auto) 4.6 Absolute Lymphs (auto) 0.14 L Total Counted Not Reportable Anisocytosis 1+ Sodium 136 Potassium 3.1 L Chloride 103 Carbon Dioxide 26.0 Anion Gap 7 BUN 10 Creatinine 0.30 L Estim Creat Clear Calc 165.75 Est GFR (MDRD) Af Amer 294 Est GFR (MDRD) Non-Af 243 BUN/Creatinine Ratio 33.9 H Glucose 143 H Calcium 8.4 L Urine Color Yellow Urine Clarity Clear Urine pH 6.0 Ur Specific Sutter 1.020 Urine Protein 100 H Urine Glucose (UA) 250 H Urine Ketones Negative Urine Occult Blood 50 H Urine Nitrite Negative Urine Bilirubin Negative Urine Urobilinogen Normal Ur Leukocyte Esterase 25 H Assessment/Plan This is a 61 years old female patient presented to the emergency room because of productive cough and shortness of breath, found to have left lower lobe infiltrate consistent with left lower lobe healthcare associated pneumonia with sepsis. #1 left lower lobe healthcare associated pneumonia/sepsis: She is on IV Zosyn and vancomycin. Vital signs are stable, afebrile, less tachycardic. Pneumococcal and Legionella antigen were negative. Respiratory panel for viruses pending. Blood and sputum cultures are pending. Plan: Continue same treatment. #2 hypokalemia: Potassium is still low this morning at 3.1. She is on potassium replacement added to IV fluids. Plan: Continue IV fluids with potassium replacement, start oral replacement with K Dur, repeat BMP tomorrow morning. #3 hyperglycemia: On admission, blood glucose was 190, today's is 143. She is nondiabetic. She was on Decadron while in chemotherapy but she mentioned that she has been off Decadron. Plan: DC Decadron, hemoglobin A1c. #4 metastatic small cell lung cancer: With metastasis to liver and bone. status post radiation therapy, currently on chemotherapy. Oncology notified, patient will be seen tomorrow. #5 anemia/thrombocytopenia: This is likely because of chemotherapy. Today's hemoglobin is 8.8 g/dL. Her baseline hemoglobin has been around 11-12 g/dL. No evidence of active bleeding. No indication for transfusion. Platelet count is 127,000, actually improved from platelet count on May 01, 2017 which is likely because of chemotherapy. Pro time and INR were normal. #6 COPD: Clinically stable, pulse ox is normal on room air. Continue DuoNeb every 6 hours, albuterol as needed, incentive spirometer, chest physiotherapy. #7 hypertension: Blood pressure under better control. Continue metoprolol, continue IV metoprolol as needed to treat both hypertension and tachycardia. #8 hyperlipidemia: Continue statins. #9 GERD: Continue PPI. #10 DVT prophylaxis: Subcu Lovenox, monitor platelet count. This note was generated with [employer] dictation software. It may contain incorrect words, spelling, and punctuation that were not noted in checking the note before signing. Code Visit Inpatient E&M: 36219 Subs Hosp L2
[2017-05-11] MEDS: Metoprolol Tartrate 5 MG/5 ML Vial IV (17:05)
[2017-05-11 20:20] LABS: Vancomycin, Trough Level 9.4 ug/mL (5.0-15.0)
[2017-05-11] MEDS: Zolpidem Tartrate 5 MG Tablet PO (21:36)
[2017-05-11] MEDS: Montelukast 10 MG Tablet PO (21:36)
[2017-05-11] MEDS: Pravastatin 40 MG Tablet PO (21:36)
[2017-05-11] MEDS: Mirtazapine 15 MG Tablet PO (21:36)
[2017-05-12] VITALS (21 sets, daily range): BP systolic 142–208; BP diastolic 74–86; PULSE 70–133; RESP 18–26; TEMP 36.4–37.5; O2SAT 95–99
[2017-05-12] MEDS: guaiFENesin Dm 10 ML UDC PO (00:23)
[2017-05-12] MEDS: Ipratropium/Albuterol Sulfate 3 ML AMPUL.NEB INHALATION ×4 (00:30→19:11)
[2017-05-12 06:25] LABS: Anion Gap 9 (5-15); BUN 13 mg/dL (7-18); BUN/Creat Ratio 37.2 RATIO (10-20); Calcium,Total 8.3 mg/dL (8.5-10.1); Chloride 97 mmol/L (98-107); Creatinine, Serum 0.35 mg/dL (0.55-1.02); EST Glomerular Filtration Rate 200 mL/min (>60); Est Glom Filt Rate - Afr Amer 242 mL/min (>60); Estimated Creatinine Clearance 142.07 ml/min; Glucose 158 mg/dL (74-106); Potassium 3.6 mmol/L (3.5-5.1); Sodium Level 131 mmol/L (136-145)
[2017-05-12] MEDS: Piperacil/Tazobactam 3.375 GM/50 ML ML IV ×3 (06:51→22:35)
[2017-05-12] MEDS: Dronabinol 2.5 MG Capsule PO ×2 (07:01→15:38)
[2017-05-12] MEDS: Enoxaparin 30 MG/0.3 ML Syringe SC (07:01)
[2017-05-12] MEDS: Metoprolol Tartrate 25 MG Tablet PO (10:31)
[2017-05-12] MEDS: Pantoprazole Sodium 40 MG Tablet PO (10:31)
[2017-05-12] MEDS: OLANZapine 10 MG Tablet PO (10:31)
[2017-05-12] MEDS: guaiFENesin 1,200 MG Tablet 1200 MG PO ×2 (11:25→20:57)
--- NOTE | 2017-05-12 11:41 | PN_ITS ---
Patient Problems: Active and Suspected Problems (Last Reviewed 04/17/17 @ 08:45 by Bhumika Barros) COPD (chronic obstructive pulmonary disease) (Acute) Pneumonia (Acute) Subjective: Patient is a 61-year-old female with a past medical history of hypertension, GERD, former smoking hx ( quit 07/2016), hyponatremia, small cell lung cancer with bone metastasis and for metastasis, COPD and HLD who presented to the emergency room at [facility] on 05/10/2017 complaining of cough and shortness of breath. She had been treated in the past with radiation and is currently receiving chemotherapy. Last chemotherapy was 05/01/2017. Vital signs at presentation to the emergency room were temp 98.1, pulse rate 110, blood pressure 183/92, respiratory rate 24 and she was 95-99% saturated on room air. Blood cell count was normal at 6.6 and the percentage neutrophils was 86% . Hemoglobin is 9.2 and this has been steadily decreasing over the past year. Platelets were low at 130,000. Potassium was low at 3.2 and BUN was elevated at 22 with a creatinine of 0.56. Random glucose was 190 and the hemoglobin A1c is 7.0. Legionella and streptococcal antigens in the urine were negative and the respiratory panel was also negative. Sputum Gram stain showed 2+ white blood cells and 2+ gram-positive cocci in chains and clusters. Preliminary on the culture appears to be normal respiratory issac. Cultures are pending. Urine culture had no growth. Chest x-ray showed a new left lower lobe pneumonia with ?pleural effusion. She is coughing up yellow sputum now and it is usually clear. She has been afebrile since admission. Systolic blood pressure has been elevated and so is the resting heart rate. She is currently 97-98% saturated on room air. Sodium is low at 131 today and the chloride is 97. BUN is down to 13 from 22 at admission and the creatinine is 0.35. Fasting blood sugars have been elevated. - Physical Exam General: Alert, Oriented x3, Cooperative, - - She is tachypneic and has accessory muscle use with pursed lip breathing. She is not on any oxygen and she has conversational dyspnea HEENT: Atraumatic, PERRLA, EOMI, Normocephalic Oral: Moist Mucosa, No Gingival or Mucosal Lesions/ Ulcerations Neck: Supple, No JVD, No Nodes, Trachea Midline Lungs: Rales - left side laterally and few crackles in the left base.....BS's on the left side sound accentuated, Wheezes Cardiovascular: Regular Rhythm, Normal S1, Normal S2, Tachycardic - ST with PAC Abdomen: Bowel Sounds Present, Soft, Non Tender, Non-Distended Extremities: No clubbing, No cyanosis, - - she has edema of the ankles that is new Skin: No rashes, No breakdown Musculoskeletal: No Muscle Wasting Neurological: Cranial nerves II-XII grossly intact, Neuro grossly intact Psych/Mental Status: Normal Affect, Appropriate Vital Signs Temp Pulse Resp BP Pulse Ox 97.6 F L 100 22 H 157/77 H 97 05/12/17 07:52 05/12/17 10:31 05/12/17 07:52 05/12/17 07:52 05/12/17 07:52 Oxygen Delivery Method Room Air Weight: 158 lb 11.725 oz Body Mass Index (BMI) 27.1 Intake and Output for Last 24 Hours 05/10/17 05/11/17 05/12/17 23:59 23:59 23:59 Intake Total 2990 / 2990 490 / 490 Output Total 700 / 700 Balance 2990 / 2990 -210 / -210 Microbiology Past 72 Hours 05/10/17 19:55 Gram Stain - Final Sputum, Expectorated/Coughed Respiratory Culture - Preliminary Appears to be normal respiratory issac. Further studies to follow. 05/10/17 19:35 Urine Culture - Preliminary Urine, Clean Catch Culture exhibits no growth. 05/10/17 19:25 Respiratory Panel (PCR) - Final Mucosa - Nose 05/10/17 19:35 Streptococcus pneumoniae Antigen (M - Final Urine, Clean Catch 05/10/17 19:35 Legionella Antigen - Final Urine, Clean Catch Laboratory Tests Past 24 Hrs 05/11/17 05/12/17 19:25 05:40 Sodium 131 L Potassium 3.6 Chloride 97 L Carbon Dioxide 25.0 Anion Gap 9 BUN 13 Creatinine 0.35 L Estim Creat Clear Calc 142.07 Est GFR (MDRD) Af Amer 242 Est GFR (MDRD) Non-Af 200 BUN/Creatinine Ratio 37.2 H Glucose 158 H Calcium 8.3 L Vancomycin Trough 9.4 Assessment/Plan Active and Suspected Problems (Last Reviewed 01/18/18 @ 08:45 by Bhumika Barros) COPD (chronic obstructive pulmonary disease) (Acute) Pneumonia (Acute) Impressions 1. HCAP 2. acute exacerbation COPD 3. dehydration - better after IV fluids 4. 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 HTN 6. GERD 7. anemia and thrombocytopenia 8. COPD 9. HLD Check a MRSA nasal swab and if it is negative DC the Vanco await the final sputum culture results Add Solu-medrol Continue the aerosols IS Continue the PEP Repeat a CXR today If no improvement by tomorrow will consult pulmonary She is + 3,284 since admission Code Visit Inpatient E&M: 67621 Subs Hosp L2
--- NOTE | 2017-05-12 12:24 | ONC.CON.INP2 ---
- Problem List (1) Small cell lung cancer Status: Chronic Qualifiers: (2) Bone metastases Status: Chronic (3) Liver metastases Status: Chronic (4) COPD (chronic obstructive pulmonary disease) Status: Acute (5) Pneumonia Status: Acute Consult Referring Physician: Hospitalist service Consult Results: Metastatic small cell lung cancer Subjective Date of Service:: 05/12/17 Chief Complaint: COUGHING 5 DAYS, AND INCREASE IN SOB TODAY History of Present Illness: Patient is a 61-year-old female with extensive stage small cell lung cancer currently on systemic chemotherapy with cisplatin Irenotecan under the care of Dr. Huerta was last chemotherapy cycle on May 01, 2017 and admitted with increasing dyspnea, wheezing, cough, productive yellow colored sputum and one episode of minor hemoptysis on May 12. She has had no fevers or pleuritic type chest pain. Her chest x-ray shows a new left lower lobe infiltrate suggestive of pneumonia. Her oncologic history as summarized initially diagnosed with extensive stage small cell lung cancer in May 2016 with disease involvement of the left lung, mediastinum, liver, and bone metastases who received 6 cycles of cisplatin and Irinotecan completed in October 2016 followed by consolidative radiation therapy to the left lung disease due to having a partial response to chemotherapy with persistent disease in this area. Most recent imaging including bone scan (03/10/17), CT chest/abdomen (03/27/17), and left femur xray (04/03/17) shows evidence for disease progression of multiple liver lesions as well as multifocal osseous disease involving primarily the spine and pelvis. She received 2000 cGy of 15 MV photons in 5 fractions to the right proximal hip, right acetabulum, partial right sacrum, and right iliac bone for pain palliation 04/10/2017-04/16/2017 Past Medical History: Chronic Problems (Last Reviewed 04/17/17 @ 08:45 by Bhumika Barros) HTN (hypertension) (Chronic) Former smoker (Chronic) quit in July 2016 Colon polyps (Chronic) GERD (gastroesophageal reflux disease) (Chronic) Hyponatremia (Chronic) Bone metastases (Chronic) HLD (hyperlipidemia) (Chronic) Liver metastases (Chronic) Small cell lung cancer (Chronic) Stage 2 moderate COPD by GOLD classification (Chronic) FEV1 54% Past Medical/Surgical History: Past Medical History - Most Recent Inpatient Visit Past Medical History Start: 05/10/17 18:54 Text: Status: Complete Freq: ONCE Protocol: Document 02/10/18 18:54 [facility] (Rec: 05/10/17 19:15 [facility] [id number]) BMI Required to complete PMH What is Patient's BMI 27.1 Past Medical History Unable History Recalled No Query Text:Pt Unable/Family Not Present Neurologic Medical History Hx Stroke/TIA No Hx Dementia/Alzheimer's No Hx Parkinson's Disease No Hx Seizures No Hx Multiple Sclerosis No Hx Migraines No Cardiac Medical History VTE Present on Admission No Hx of Deep Vein Thrombosis/VTE/PE No Hx Hypertension Yes Hx Chest Pain/Angina No Hx Heart Attack No Hx Cardiac Surgery/Stents/Etc. Yes: heart cath neg 3 mos ago Hx Heart Failure No Hx Pacemaker/AICD No Hx Irregular Heartbeat and/or Afib Yes: irreg Hx Anticoagulant Therapy No Query Text:(Coumadin, Aspirin, Plavix, Xarelto, etc.) Hx Pain in Legs when Walking/Leg Cramps No Respiratory Medical History Hx COPD Yes Hx Emphysema No Hx Smoking Yes Smoking Status Former smoker Hx Smoking Cessation Counseling No Hx Smoking Exposure Yes Hx Tobacco Use in last 12 months No Hx of Pipe Smoking No Hx Sleep Apnea No CPAP No Do you snore loudly (louder than talking No or can be heard through closed doors)? Do you often feel tired/ fatigued/ No sleepy during daytime? Has anyone observed you stop breathing No during sleep? STOP Results Negative GI Medical History Hx Ulcer No Hx Hepatitis No Hx Cirrhosis No Hx GI Bleed No Hx Unplanned Weight Loss Yes: after diagnosed with cancer Genitourinary Medical History Indwelling Catheter in Place on Arrival/ No Admission Hx Renal Disease No Hx Dialysis No Musculoskeletal History Hx Arthritis No Hx Rheumatoid Arthritis No Endocrine Medical History Hx Diabetes No Hx Thyroid Disease No Hematologic Medical History Hx of Blood Transfusion No Hx of Transfusion in last 3 Months No Ever experience any problems with No transfusion(s)? Hx of Preganancy in last 3 Months No Nurse Filling Out Transfusion & BHICKEY Questions: Date: 05/10/17 Time: 19:14 Psycho/Social Medical History Hx Depression No Hx Anxiety No Hx Behavior Disorder No Hx Alcohol Use No Hx Substance Use No Other Medical History Hx Blood Disorders No Hx Anemia No Hx Cancer Yes: SMALL CELL LUNG CANCER, mets to liver & rt femur Hx Drug Resistant Organism No Wound/Pressure Injury Present on Arrival No /Admission Query Text:If yes, chart assessment in Shift/Clinical Findings Central Line/PICC/VAD Present on Arrival No /Admission Antibiotics within last 7 days? No Risk for Readmission Number of Risk Factors 3 At Risk for Readmission Patient is At Risk For Readmission Patient is eligible for Call Back Y Past Medical History (Last Reviewed 04/17/17 @ 08:45 by Bhumika Barros) EBUS (Acute) History of carpal tunnel release (Acute) History of mumps (Acute) History of pneumonia (Acute) Measles (Acute) med port placement (Acute) Past Surgical History (Last Reviewed 04/17/17 @ 08:45 by Bhumika Barros) H/O lumpectomy (Acute) Maternal Family History: Family History (Last Reviewed 04/17/17 @ 08:45 by Bhumika Barros) Mother CVA (cerebral vascular accident) Father CVA (cerebral vascular accident) Family History: - - breast cancer Paternal Family History: Family History (Last Reviewed 04/17/17 @ 08:45 by Bhumika Barros) Mother CVA (cerebral vascular accident) Father CVA (cerebral vascular accident) Family History: Hypertension - Social History Lives: Spouse/ Significant Other Smoking Status: Former smoker Alcohol: None Drugs: None Allergies/Adverse Reactions: Allergy/AdvReac Type Severity Reaction Status Date / Time amlodipine Allergy Severe Swelling Verified 05/10/17 16:06 azithromycin Allergy Severe Pt doesn't Verified 05/10/17 16:06 remember lisinopril AdvReac Mild Other Verified 05/10/17 16:06 Home Medications Medication Instructions Recorded Montelukast Sodium [Singulair] 10 mg PO QHS 06/08/16 Pravastatin Sodium 40 mg PO QHS 07/17/16 Budesonide/Formoterol 80-4.5 2 puff INHALATION BID 01/22/17 [Symbicort 80-4.5 Mcg Inhaler] Docusate Sodium [Colace] 100 mg PO DAILY 01/22/17 Metoprolol Tartrate [Lopressor 25 mg PO DAILY 01/22/17 (beta marzena)] Pantoprazole Sodium [Protonix] 20 mg PO DAILY PRN PRN 01/22/17 Acetaminophen [Tylenol Tablet] 325 - 650 mg PO Q6H PRN PRN tablet 01/23/17 Dronabinol [Marinol] 2.5 mg PO BIDAC #60 capsule 01/23/17 Mirtazapine [Remeron] 15 mg PO QHS #30 tab 04/16/17 Olanzapine 10 mg PO DAILY #30 tab 04/16/17 Potassium Phosphate,Monobasic 500 mg PO DAILY #30 tablet.carolina 05/01/17 [K-Phos Original] Dexamethasone 4 mg PO DAILY 05/10/17 Naproxen [Naprosyn] 250 mg PO DAILY PRN PRN 05/10/17 Ondansetron [Zofran] 4 mg PO Q12H PRN PRN 05/10/17 Pyridoxine HCl [Vitamin B-6] 100 mg PO DAILY 05/10/17 Sodium Chloride 1 gm PO TID 05/10/17 Review of Systems Constitutional:: Reports: Weakness, Fatigue, Appetite change. Denies: Fever, Sweats, Weight loss, Chills Cardiovascular:: Reports: Dyspnea on exertion. Denies: Chest pain, Palpitations, Orthopnea, PND, Shortness of breath Respiratory: Reports: Cough, Hemoptysis, Shortness of breath upon exertion, Sputum production, Wheezing. Denies: Shortness of Breath Gastrointestinal:: Denies: Abdominal pain, Nausea, Vomiting, Diarrhea, Constipation, Hematochezia Genitourinary: Denies: Dysuria, Hematuria, 15, Flank pain Musculoskeletal:: Denies: Back pain, Myalgia, Arthralgia Skin: Denies: Rash, Skin Changes, Wounds Neurological:: Denies: Headache, Dizziness, Visual changes, Tinnitus, Hearing loss Psychiatric: Denies: Anxiety, Depression, Homicidal Ideations, Suicidal Ideations Vital Signs Height 5 ft 4.17 in Weight: 72 kg Weight in Pounds 158.7 lbs Pulse Ox 97 Temperature 97.6 F Pulse Rate 100 Respiratory Rate 22 Blood Pressure [BP] 154/79 Blood Pressure 157/77 Blood Pressure Position [BP] Semi-Fowlers Blood Pressure Position Sitting - Physical Exam General: Alert, Oriented x3, No apparent distress, - - ECOG 2 HEENT: Atraumatic, PERRLA, EOMI, Normocephalic Oropharynx:: Dry mucosa Neck:: Supple, Trachea midline, - - Porte okay. Negative for: JVD, bilateral Cardiac:: Regular rate, Regular rhythm, Normal S1, Normal S2. Negative for: Murmur Lungs: Clear to auscultation, Wheezes, Diminished, Excusion symmetrical. Negative for: Rhonchi Abdomen:: Soft, Non-tender, Non-distended. Negative for: Hepatosplenomegaly Extremities:: Edema - Minimal ankles. Negative for: Cyanosis Neurological: Neuro grossly intact Skin:: Negative for: Lesions, Rash, Petechiae, Ecchymosis Psychiatric:: Appropriate affect, Euthymic Lymphatics:: Negative for: Cervical lymphadenopathy, Supraclavicular lymphadenopathy, Axillary lymphadenopathy Laboratory Data: Microbiology 05/10/17 19:55 Gram Stain - Final Sputum, Expectorated/Coughed Respiratory Culture - Preliminary Appears to be normal respiratory issac. Further studies to follow. 05/10/17 19:35 Urine Culture - Preliminary Urine, Clean Catch Culture exhibits no growth. 05/10/17 19:25 Respiratory Panel (PCR) - Final Mucosa - Nose 05/10/17 19:35 Streptococcus pneumoniae Antigen (M - Final Urine, Clean Catch 05/10/17 19:35 Legionella Antigen - Final Urine, Clean Catch Laboratory Tests 05/12/17 05/11/17 Range/Units 05:40 19:25 Sodium 131 L (136-145) mmol/L Potassium 3.6 (3.5-5.1) mmol/L Chloride 97 L (98-107) mmol/L Carbon Dioxide 25.0 (21.0-32.0) mmol/L Anion Gap 9 (5-15) BUN 13 (7-18) mg/dL Creatinine 0.35 L (0.55-1.02) mg/dL Estim Creat Clear Calc 142.07 ml/min Est GFR (MDRD) Af Amer 242 (>60) mL/min Est GFR (MDRD) Non-Af 200 (>60) mL/min BUN/Creatinine Ratio 37.2 H (10-20) RATIO Glucose 158 H (74-106) mg/dL Calcium 8.3 L (8.5-10.1) mg/dL Vancomycin Trough 9.4 (5.0-15.0) ug/mL Laboratory Tests 05/11/17 06:45 WBC 5.3 Hgb 8.8 L Hct 27.5 L Plt Count 127 L Absolute Neuts (auto) 4.6 Diagnostic Data: Diagnostic Data Chest X-Ray 05/10/17 16:20 IMPRESSION: New left lower lobe pneumonia with effusion. Electronically Signed: Teddy Humphrey MD at 17:15 EST , Service support , Assessment and Plan 61-year-old female with extensive stage IV small cell lung cancer relapse following initial treatment in 2017 (see HPI for summary) currently on systemic chemotherapy cisplatin Irenotecan last cycle May 01, 2017 admitted with increasing dyspnea, wheezing, cough, sputum production and one episode of minor hemoptysis. Chest x-ray reveals a new left lower lobe infiltrate. On clinical grounds these findings are most suggestive of respiratory infection on top of COPD. From the hematology oncology point of care she is not neutropenic and has a moderately severe anemia consistent with cancer and chemotherapy. Her chemotherapy which was due this week will be held while she recovers from this acute illness. Defer to primary service for choice of antimicrobial treatment of her respiratory infection. We will follow-up after discharge. Discussed with patient and Medications: Prescriptions This Visit Medication Instructions Recorded Dexamethasone 4 mg PO DAILY 05/10/17 Naproxen [Naprosyn] 250 mg PO DAILY PRN PRN 05/10/17 Ondansetron [Zofran] 4 mg PO Q12H PRN PRN 05/10/17 Pyridoxine HCl [Vitamin B-6] 100 mg PO DAILY 05/10/17 Sodium Chloride 1 gm PO TID 05/10/17 Primary Care Provider: Roe Small Referring Provider:
--- NOTE | 2017-05-12 12:35 | CON.PCM_ITS ---
- Problem List (1) Small cell lung cancer Status: Chronic Qualifiers: (2) Bone metastases Status: Chronic (3) Liver metastases Status: Chronic (4) COPD (chronic obstructive pulmonary disease) Status: Acute (5) Pneumonia Status: Acute Consult Referring Physician: Hospitalist service Consult Results: Metastatic small cell lung cancer Subjective Date of Service:: 05/12/17 Chief Complaint: COUGHING 5 DAYS, AND INCREASE IN SOB TODAY History of Present Illness: Patient is a 61-year-old female with extensive stage small cell lung cancer currently on systemic chemotherapy with cisplatin Irenotecan under the care of Dr. Huerta was last chemotherapy cycle on May 01, 2017 and admitted with increasing dyspnea, wheezing, cough, productive yellow colored sputum and one episode of minor hemoptysis on May 12. She has had no fevers or pleuritic type chest pain. Her chest x-ray shows a new left lower lobe infiltrate suggestive of pneumonia. Her oncologic history as summarized initially diagnosed with extensive stage small cell lung cancer in May 2016 with disease involvement of the left lung, mediastinum, liver, and bone metastases who received 6 cycles of cisplatin and Irinotecan completed in October 2016 followed by consolidative radiation therapy to the left lung disease due to having a partial response to chemotherapy with persistent disease in this area. Most recent imaging including bone scan (03/10), CT chest/abdomen (03/27/17), and left femur xray (04/03/17) shows evidence for disease progression of multiple liver lesions as well as multifocal osseous disease involving primarily the spine and pelvis. She received 2000 cGy of 15 MV photons in 5 fractions to the right proximal hip , right acetabulum, partial right sacrum, and right iliac bone for pain palliation 04/10/2017-04/16/2017 Past Medical History: Chronic Problems (Last Reviewed 04/17/17 @ 08:45 by Bhumika Barros) HTN (hypertension) (Chronic) Former smoker (Chronic) quit in July 2016 Colon polyps (Chronic) GERD (gastroesophageal reflux disease) (Chronic) Hyponatremia (Chronic) Bone metastases (Chronic) HLD (hyperlipidemia) (Chronic) Liver metastases (Chronic) Small cell lung cancer (Chronic) Stage 2 moderate COPD by GOLD classification (Chronic) FEV1 54% Past Medical/Surgical History: Past Medical History - Most Recent Inpatient Visit Past Medical History Start: 05/10/17 18: 54 Text: Status: Complete Freq: ONCE Protocol: Document 02/10/18 18:54 [facility] (Rec: 05/10/17 19:15 [facility] [id number]) BMI Required to complete PMH What is Patient's BMI 27.1 Past Medical History Unable History Recalled No Query Text:Pt Unable/Family Not Present Neurologic Medical History Hx Stroke/TIA No Hx Dementia/Alzheimer's No Hx Parkinson's Disease No Hx Seizures No Hx Multiple Sclerosis No Hx Migraines No Cardiac Medical History VTE Present on Admission No Hx of Deep Vein Thrombosis/VTE/PE No Hx Hypertension Yes Hx Chest Pain/Angina No Hx Heart Attack No Hx Cardiac Surgery/Stents/Etc. Yes: heart cath neg 3 mos ago Hx Heart Failure No Hx Pacemaker/AICD No Hx Irregular Heartbeat and/or Afib Yes: irreg Hx Anticoagulant Therapy No Query Text:(Coumadin, Aspirin, Plavix, Xarelto, etc.) Hx Pain in Legs when Walking/Leg Cramps No Respiratory Medical History Hx COPD Yes Hx Emphysema No Hx Smoking Yes Smoking Status Former smoker Hx Smoking Cessation Counseling No Hx Smoking Exposure Yes Hx Tobacco Use in last 12 months No Hx of Pipe Smoking No Hx Sleep Apnea No CPAP No Do you snore loudly (louder than talking No or can be heard through closed doors)? Do you often feel tired/ fatigued/ No sleepy during daytime? Has anyone observed you stop breathing No during sleep? STOP Results Negative GI Medical History Hx Ulcer No Hx Hepatitis No Hx Cirrhosis No Hx GI Bleed No Hx Unplanned Weight Loss Yes: after diagnosed with cancer Genitourinary Medical History Indwelling Catheter in Place on Arrival/ No Admission Hx Renal Disease No Hx Dialysis No Musculoskeletal History Hx Arthritis No Hx Rheumatoid Arthritis No Endocrine Medical History Hx Diabetes No Hx Thyroid Disease No Hematologic Medical History Hx of Blood Transfusion No Hx of Transfusion in last 3 Months No Ever experience any problems with No transfusion(s)? Hx of Preganancy in last 3 Months No Nurse Filling Out Transfusion & BHICKEY Questions: Date: 05/10/17 Time: 19:14 Psycho/Social Medical History Hx Depression No Hx Anxiety No Hx Behavior Disorder No Hx Alcohol Use No Hx Substance Use No Other Medical History Hx Blood Disorders No Hx Anemia No Hx Cancer Yes: SMALL CELL LUNG CANCER, mets to liver & rt femur Hx Drug Resistant Organism No Wound/Pressure Injury Present on Arrival No /Admission Query Text:If yes, chart assessment in Shift/Clinical Findings Central Line/PICC/VAD Present on Arrival No /Admission Antibiotics within last 7 days? No Risk for Readmission Number of Risk Factors 3 At Risk for Readmission Patient is At Risk For Readmission Patient is eligible for Call Back Y Past Medical History (Last Reviewed 04/17/17 @ 08:45 by Bhumika Barros) EBUS (Acute) History of carpal tunnel release (Acute) History of mumps (Acute) History of pneumonia (Acute) Measles (Acute) med port placement (Acute) Past Surgical History (Last Reviewed 04/17/17 @ 08:45 by Bhumika Barros) H/O lumpectomy (Acute) Maternal Family History: Family History (Last Reviewed 04/17/17 @ 08:45 by Bhumika Barros) Mother CVA (cerebral vascular accident) Father CVA (cerebral vascular accident) Family History: - - breast cancer Paternal Family History: Family History (Last Reviewed 04/17/17 @ 08:45 by Bhumika Barros) Mother CVA (cerebral vascular accident) Father CVA (cerebral vascular accident) Family History: Hypertension - Social History Lives: Spouse/ Significant Other Smoking Status: Former smoker Alcohol: None Drugs: None Allergies/Adverse Reactions: Allergy/AdvReac Type Severity Reaction Status Date / Time amlodipine Allergy Severe Swelling Verified 05/10/17 16:06 azithromycin Allergy Severe Pt doesn't Verified 05/10/17 16:06 remember lisinopril AdvReac Mild Other Verified 05/10/17 16:06 Home Medications Medication Instructions Recorded Montelukast Sodium [Singulair] 10 mg PO QHS 06/08/16 Pravastatin Sodium 40 mg PO QHS 07/17/16 Budesonide/Formoterol 80-4.5 2 puff INHALATION BID 01/22/17 [Symbicort 80-4.5 Mcg Inhaler] Docusate Sodium [Colace] 100 mg PO DAILY 01/22/17 Metoprolol Tartrate [Lopressor 25 mg PO DAILY 01/22/17 (beta marzena)] Pantoprazole Sodium [Protonix] 20 mg PO DAILY PRN PRN 01/22/17 Acetaminophen [Tylenol Tablet] 325 - 650 mg PO Q6H PRN PRN tablet 01/23/17 Dronabinol [Marinol] 2.5 mg PO BIDAC #60 capsule 01/23/17 Mirtazapine [Remeron] 15 mg PO QHS #30 tab 04/16/17 Olanzapine 10 mg PO DAILY #30 tab 04/16/17 Potassium Phosphate,Monobasic 500 mg PO DAILY #30 tablet.carolina 05/01/17 [K-Phos Original] Dexamethasone 4 mg PO DAILY 05/10/17 Naproxen [Naprosyn] 250 mg PO DAILY PRN PRN 05/10/17 Ondansetron [Zofran] 4 mg PO Q12H PRN PRN 05/10/17 Pyridoxine HCl [Vitamin B-6] 100 mg PO DAILY 05/10/17 Sodium Chloride 1 gm PO TID 05/10/17 Review of Systems Constitutional:: Reports: Weakness, Fatigue, Appetite change. Denies: Fever, Sweats, Weight loss, Chills Cardiovascular:: Reports: Dyspnea on exertion. Denies: Chest pain, Palpitations , Orthopnea, PND, Shortness of breath Respiratory: Reports: Cough, Hemoptysis, Shortness of breath upon exertion, Sputum production, Wheezing. Denies: Shortness of Breath Gastrointestinal:: Denies: Abdominal pain, Nausea, Vomiting, Diarrhea, Constipation, Hematochezia Genitourinary: Denies: Dysuria, Hematuria, 15, Flank pain Musculoskeletal:: Denies: Back pain, Myalgia, Arthralgia Skin: Denies: Rash, Skin Changes, Wounds Neurological:: Denies: Headache, Dizziness, Visual changes, Tinnitus, Hearing loss Psychiatric: Denies: Anxiety, Depression, Homicidal Ideations, Suicidal Ideations Vital Signs Height 5 ft 4.17 in Weight: 72 kg Weight in Pounds 158.7 lbs Pulse Ox 97 Temperature 97.6 F Pulse Rate 100 Respiratory Rate 22 Blood Pressure [BP] 154/79 Blood Pressure 157/77 Blood Pressure Position [BP] Semi-Fowlers Blood Pressure Position Sitting - Physical Exam General: Alert, Oriented x3, No apparent distress, - - ECOG 2 HEENT: Atraumatic, PERRLA, EOMI, Normocephalic Oropharynx:: Dry mucosa Neck:: Supple, Trachea midline, - - Porte okay. Negative for: JVD, bilateral Cardiac:: Regular rate, Regular rhythm, Normal S1, Normal S2. Negative for: Murmur Lungs: Clear to auscultation, Wheezes, Diminished, Excusion symmetrical. Negative for: Rhonchi Abdomen:: Soft, Non-tender, Non-distended. Negative for: Hepatosplenomegaly Extremities:: Edema - Minimal ankles. Negative for: Cyanosis Neurological: Neuro grossly intact Skin:: Negative for: Lesions, Rash, Petechiae, Ecchymosis Psychiatric:: Appropriate affect, Euthymic Lymphatics:: Negative for: Cervical lymphadenopathy, Supraclavicular lymphadenopathy, Axillary lymphadenopathy Laboratory Data: Microbiology 05/10/17 19:55 Gram Stain - Final Sputum, Expectorated/Coughed Respiratory Culture - Preliminary Appears to be normal respiratory issac. Further studies to follow. 05/10/17 19:35 Urine Culture - Preliminary Urine, Clean Catch Culture exhibits no growth. 05/10/17 19:25 Respiratory Panel (PCR) - Final Mucosa - Nose 05/10/17 19:35 Streptococcus pneumoniae Antigen (M - Final Urine, Clean Catch 05/10/17 19:35 Legionella Antigen - Final Urine, Clean Catch Laboratory Tests 3 05/12/17 05/11/17 Range/Units 05:40 19:25 Sodium 131 L (136-145) mmol/L Potassium 3.6 (3.5-5.1) mmol/L Chloride 97 L (98-107) mmol/L Carbon Dioxide 25.0 (21.0-32.0) mmol/L Anion Gap 9 (5-15) BUN 13 (7-18) mg/dL Creatinine 0.35 L (0.55-1.02) mg/dL Estim Creat Clear Calc 142.07 ml/min Est GFR (MDRD) Af Amer 242 (>60) mL/min Est GFR (MDRD) Non-Af 200 (>60) mL/min BUN/Creatinine Ratio 37.2 H (10-20) RATIO Glucose 158 H (74-106) mg/dL Calcium 8.3 L (8.5-10.1) mg/dL Vancomycin Trough 9.4 (5.0-15.0) ug/mL Laboratory Tests 05/11/17 06:45 WBC 5.3 Hgb 8.8 L Hct 27.5 L Plt Count 127 L Absolute Neuts (auto) 4.6 Diagnostic Data: Diagnostic Data Chest X-Ray 05/10/17 16:20 IMPRESSION: New left lower lobe pneumonia with effusion. Electronically Signed: Teddy Humphrey MD at 17:15 EST , Service support , Assessment and Plan 61-year-old female with extensive stage IV small cell lung cancer relapse following initial treatment in 2017 (see HPI for summary) currently on systemic chemotherapy cisplatin Irenotecan last cycle May 01, 2017 admitted with increasing dyspnea, wheezing, cough, sputum production and one episode of minor hemoptysis. Chest x-ray reveals a new left lower lobe infiltrate. On clinical grounds these findings are most suggestive of respiratory infection on top of COPD. From the hematology oncology point of care she is not neutropenic and has a moderately severe anemia consistent with cancer and chemotherapy. Her chemotherapy which was due this week will be held while she recovers from this acute illness. Defer to primary service for choice of antimicrobial treatment of her respiratory infection. We will follow-up after discharge. Discussed with patient and Medications: Prescriptions This Visit Medication Instructions Recorded Dexamethasone 4 mg PO DAILY 05/10/17 Naproxen [Naprosyn] 250 mg PO DAILY PRN PRN 05/10/17 Ondansetron [Zofran] 4 mg PO Q12H PRN PRN 05/10/17 Pyridoxine HCl [Vitamin B-6] 100 mg PO DAILY 05/10/17 Sodium Chloride 1 gm PO TID 05/10/17 Primary Care Provider: Roe Small Referring Provider:
--- NOTE | 2017-05-12 14:15 | RAD_ITS ---
STUDY: X-RAY CHEST REASON FOR EXAM: Female, 61 years old. Dyspnea. Left lower lobe pneumonia. Lung cancer TECHNIQUE: PA and lateral views of the chest. COMPARISON: Chest x-ray on May 10, 2017. FINDINGS: There is a right MediPort extending to the SVC. EKG leads are in place There is a persistent left lower lobe infiltrate. There is a persistent left pleural effusion Normal size heart. Normal mediastinum and klaus. Normal visualized pulmonary arteries. Normal visualized aortic arch and descending thoracic aorta. There are diffuse degenerative changes of the visualized thoracic spine. Normal visualized ribs, clavicles, and shoulders. There is no demonstrated abnormality of the visualized soft tissue structures of the upper abdomen. RAD/Chest PA and Lateral IMPRESSION: Persistent left lower lobe infiltrate and left pleural effusion Electronically Signed: Satnam Oswald MD, FACR at 15:23 EST , Service support ,
[2017-05-12] MEDS: Metoprolol Tartrate 5 MG/5 ML Vial IV (18:27)
[2017-05-12 20:06] LABS: M R Staph aureus DNA By PCR Negative (Negative); Probe Check PASS; Specimen Processing Control PASS
[2017-05-12] MEDS: Mirtazapine 15 MG Tablet PO (20:57)
[2017-05-12] MEDS: dilTIAZem 30 MG Tablet PO (20:57)
[2017-05-12] MEDS: Pravastatin 40 MG Tablet PO (20:57)
[2017-05-12] MEDS: Montelukast 10 MG Tablet PO (20:57)
[2017-05-13] VITALS (19 sets, daily range): BP systolic 147–175; BP diastolic 67–82; PULSE 88–108; RESP 18–24; TEMP 36.6–36.9; O2SAT 94–100
--- NOTE | 2017-05-13 00:07 | NUR.TO.PHY ---
Patient confirmed only side effect to lisinopril is a cough. Patient alerted that Dr. Whitmore may order this for short term control of blood pressure, agreeable.
[2017-05-13] MEDS: dilTIAZem 30 MG Tablet PO ×5 (00:40→23:13)
[2017-05-13] MEDS: Ipratropium/Albuterol Sulfate 3 ML AMPUL.NEB INHALATION ×4 (01:01→19:36)
[2017-05-13] MEDS: guaiFENesin Dm 10 ML UDC PO (01:32)
[2017-05-13] MEDS: Piperacil/Tazobactam 3.375 GM/50 ML ML IV ×2 (06:12→13:56)
[2017-05-13] MEDS: Enoxaparin 30 MG/0.3 ML Syringe SC (06:12)
[2017-05-13 06:27] LABS: Hematocrit 27.2 % (37-47); Mean Corp Hgb Conc 33.1 g/gl (32-36); Mean Corpuscular Hgb 29.2 pg (27.0-32.0); Mean Corpuscular Volume 88.3 fL (81-99); Mean Platelet Vol. 9.3 fl (6.2-12.0); Platelet Count 184 K/mm3 (150-450); RBC Distribution Width CV 20.8 % (11.6-14.6); RBC Distribution Width SD 63.5 fl (35.1-43.9); Red Blood Count 3.08 M/mm3 (4.2-5.4); White Blood Count 7.9 K/mm3 (4.4-11.0)
[2017-05-13 06:28] LABS: Scan Indicated on CBC? Y/N YES- FLAGS NOTED
[2017-05-13 06:48] LABS: Differential Comment SCAN
[2017-05-13] MEDS: Dronabinol 2.5 MG Capsule PO ×2 (07:00→17:16)
[2017-05-13 07:06] LABS: Anion Gap 7 (5-15); BUN 13 mg/dL (7-18); BUN/Creat Ratio 33.1 RATIO (10-20); Calcium,Total 8.3 mg/dL (8.5-10.1); Chloride 96 mmol/L (98-107); Creatinine, Serum 0.39 mg/dL (0.55-1.02); EST Glomerular Filtration Rate 174 mL/min (>60); Est Glom Filt Rate - Afr Amer 211 mL/min (>60); Glucose 229 mg/dL (74-106); Magnesium 1.9 mg/dL (1.6-2.6); Phosphorus 3.4 mg/dL (2.5-4.9); Sodium Level 133 mmol/L (136-145)
[2017-05-13] MEDS: OLANZapine 10 MG Tablet PO (07:41)
[2017-05-13] MEDS: guaiFENesin 1,200 MG Tablet 1200 MG PO ×2 (07:41→21:31)
[2017-05-13] MEDS: Metoprolol Tartrate 25 MG Tablet PO (07:41)
[2017-05-13] MEDS: Pantoprazole Sodium 40 MG Tablet PO (07:41)
[2017-05-13] MEDS: NYSTATIN 500,000 UNIT/5 ML UDC 500000 UNIT PO ×4 (07:48→21:31)
--- NOTE | 2017-05-13 21:21 | PCM.PROGNOTE ---
Patient Problems: Active and Suspected Problems (Last Reviewed 04/17/17 @ 08:45 by Bhumika Barros) COPD (chronic obstructive pulmonary disease) (Acute) Pneumonia (Acute) Subjective: Day #3 antibiotics She is afebrile. Vital signs are stable. She is 96% saturated on room air today with a respiratory rate of 22. States that she is still wheezing but is less short of breath than yesterday. All lab was personally reviewed. Hemoglobin is stable at 9.0. Platelets are now within normal limits. Potassium is 4.0 today following supplementation. Blood sugars have been elevated secondary to high-dose steroids. Phosphorus and magnesium are normal today. Hemoglobin A1c was 7.0. She has no hx of DM. Sputum culture is positive for Moxarella Catarrhalis. - Physical Exam General: Alert, Oriented x3, Cooperative, No apparent distress Neck: Supple, No Nuchal Rigidity, Trachea Midline Lungs: Diminished - Diminished breath sounds in the left lower lung posteriorly. Overall she has better air exchange today and has expiratory wheezing only. She is able to speak in full sentences today and is no longer using accessory muscles of respiration., Wheezes Cardiovascular: Regular Rhythm, Normal S1, Normal S2, No Gallop, Tachycardic Abdomen: Bowel Sounds Present, Soft, Non Tender, Non-Distended Extremities: Edema - Ankles only Skin: No rashes Neurological: Cranial nerves II-XII grossly intact, Neuro grossly intact Psych/Mental Status: Normal Affect, Appropriate Vital Signs Temp Pulse Resp BP Pulse Ox 97.8 F 106 H 22 H 170/82 H 96 05/13/17 17:08 05/13/17 20:00 05/13/17 19:37 05/13/17 17:08 05/13/17 19:37 Oxygen Flow Rate 2 Oxygen Delivery Method Room Air Weight: 158 lb 11.725 oz Body Mass Index (BMI) 27.1 Intake and Output for Last 24 Hours 05/11/17 05/12/17 05/13/17 23:59 23:59 23:59 Intake Total 2990 / 2990 2494 / 2494 1503 / 1503 Output Total 2200 / 2200 2900 / 2900 Balance 2990 / 2990 294 / 294 -1397 / -1397 Microbiology Past 72 Hours 05/10/17 19:55 Gram Stain - Final Sputum, Expectorated/Coughed Respiratory Culture - Final Moraxella(Lizz.)Catarrhalis 05/10/17 19:35 Urine Culture - Final Urine, Clean Catch Culture exhibits no growth. 05/10/17 19:25 Respiratory Panel (PCR) - Final Mucosa - Nose 05/10/17 19:35 Streptococcus pneumoniae Antigen (M - Final Urine, Clean Catch 05/10/17 19:35 Legionella Antigen - Final Urine, Clean Catch Laboratory Tests Past 24 Hrs 05/13/17 05/13/17 05/13/17 06:05 06:05 06:05 WBC 7.9 RBC 3.08 L Hgb 9.0 L Hct 27.2 L MCV 88.3 MCH 29.2 MCHC 33.1 RDW 20.8 H RDW Differential 63.5 H Plt Count 184 MPV 9.3 Differential Comment SCAN Sodium 133 L Potassium 4.0 Chloride 96 L Carbon Dioxide 30.0 Anion Gap 7 BUN 13 Creatinine 0.39 L Estim Creat Clear Calc 127.50 Est GFR (MDRD) Af Amer 211 Est GFR (MDRD) Non-Af 174 BUN/Creatinine Ratio 33.1 H Glucose 229 H Lactic Acid 1.0 Calcium 8.3 L Phosphorus 3.4 Magnesium 1.9 Assessment/Plan Active and Suspected Problems (Last Reviewed 04/17/17 @ 08:45 by Bhumika Barros) COPD (chronic obstructive pulmonary disease) (Acute) Pneumonia (Acute) Impressions 1. HCAP - due to Moxarella Catarrhalis 2. acute exacerbation COPD secondary to pneumonia 3. dehydration - better after IV fluids 4. 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 HTN 6. GERD 7. anemia and thrombocytopenia 8. COPD 9. HLD 10. DM II - possibly related to frequent steroids for exacerbations COPD Vancomycin and Zosyn have been discontinued and she will be started on Levaquin 750 mg IV daily Continue Solu-Medrol 40 mg IV every 8 hours 4 times daily Accu-Cheks with sliding scale insulin coverage Change diet to cardiac calorie controlled, 1800 analia Ambulatory pulse ox prior to discharge Code Visit Inpatient E&M: 50789 Subs Hosp L2
[2017-05-13] MEDS: Pravastatin 40 MG Tablet PO (21:31)
[2017-05-13] MEDS: Mirtazapine 15 MG Tablet PO (21:31)
[2017-05-13] MEDS: Montelukast 10 MG Tablet PO (21:32)
[2017-05-13 21:50] LABS: Bedside Glucose 429 mg/dL (70-110)
[2017-05-13] MEDS: Acetaminophen 325 MG Tablet 650 MG PO (23:13)
[2017-05-13 23:21] LABS: Bedside Glucose 388 mg/dL (70-110)
[2017-05-14] VITALS (14 sets, daily range): BP systolic 152–188; BP diastolic 66–80; PULSE 82–110; RESP 15–22; TEMP 36.3–36.6; O2SAT 95–97
[2017-05-14] MEDS: Ipratropium/Albuterol Sulfate 3 ML AMPUL.NEB INHALATION ×4 (01:05→19:03)
[2017-05-14] MEDS: dilTIAZem 30 MG Tablet PO ×3 (05:30→18:00)
[2017-05-14] MEDS: guaiFENesin Dm 10 ML UDC PO ×2 (05:30→15:55)
[2017-05-14] MEDS: Enoxaparin 30 MG/0.3 ML Syringe SC (05:30)
[2017-05-14 06:45] LABS: Bedside Glucose 264 mg/dL (70-110)
[2017-05-14] MEDS: Dronabinol 2.5 MG Capsule PO ×2 (08:58→16:50)
[2017-05-14] MEDS: Metoprolol Tartrate 25 MG Tablet PO (10:13)
[2017-05-14] MEDS: Pantoprazole Sodium 40 MG Tablet PO (10:15)
[2017-05-14] MEDS: guaiFENesin 1,200 MG Tablet 1200 MG PO ×2 (10:15→21:14)
[2017-05-14] MEDS: OLANZapine 10 MG Tablet PO (10:16)
[2017-05-14] MEDS: NYSTATIN 500,000 UNIT/5 ML UDC 500000 UNIT PO ×4 (10:17→21:14)
[2017-05-14 11:11] LABS: Bedside Glucose > 500 mg/dL (70-110)
[2017-05-14 13:01] LABS: Bedside Glucose 457 mg/dL (70-110)
[2017-05-14 14:11] LABS: Bedside Glucose 424 mg/dL (70-110)
--- NOTE | 2017-05-14 15:09 | CT_ITS ---
STUDY: CT CHEST WITHOUT CONTRAST REASON FOR EXAM: Female, 61 years old. PLEURAL EFFUSION, PNEUMONIA. LUNG CA WITH METS TO LIVER/BONE RADIATION DOSAGE (If Supplied By Facility): CTDIvol = ( 16.12 ) mGy, DLP = ( 535.82 ) mGycm TECHNIQUE: Transaxial imaging was performed without the administration of intravenous contrast material. Individualized dose optimization techniques were used for this CT. COMPARISON: 03.27.17 FINDINGS: There is no pneumothorax. There are emphysematous changes of the lungs with emphysematous blebs. There are multiple lesions noted in the lungs which are likely related to metastatic disease. Mucous, fluid, or debris noted in the left bronchus. This may suggest an aspiration pneumonia. There are calcifications of the coronary arteries. Normal mediastinum. Normal hilar regions. Normal pulmonary arteries. There is atherosclerotic calcification of the aortic arch with tortuosity and elongation of the aortic arch and descending thoracic aorta. There are multi-level degenerative changes of the thoracic spine. There are multiple lesions noted in the Bones which are likely related to metastatic disease. This involves the ribs, sternum, scapula, and thoracic spine. There are multiple lesions noted in the liver which are likely related to metastatic disease. There is a right Port-A-Cath and/or mediport in place. The tip is in the superior vena cava. There are degenerative changes of the shoulders. CT/Chest without Contrast IMPRESSION: Mucous, fluid, or debris noted in the left bronchus. This may suggest an aspiration pneumonia. Metastatic disease to the lungs, liver, and bones. Electronically Signed: Robb Suarez MD at 16:24 EST , Service support ,
--- NOTE | 2017-05-14 15:39 | NURSING ---
1525-TRANSPORTED BY SISSY KRISHNAMURTHY VIA WHEELCHAIR FOR ORDERED CT SCAN.
[2017-05-14 17:01] LABS: Bedside Glucose 286 mg/dL (70-110)
[2017-05-14 18:26] LABS: International Normalized Ratio 1.2; Partial Thromboplast Time 25.2 Seconds (24.1-36.2); Prothrombin Time (Protime)PT. 14.9 SECONDS (11.7-14.9)
--- NOTE | 2017-05-14 20:34 | PN_ITS ---
Patient Problems: Active and Suspected Problems (Last Reviewed 04/17/17 @ 08:45 by Bhumika Barros) COPD (chronic obstructive pulmonary disease) (Acute) Pneumonia (Acute) Subjective: states he breathing is good today and she walked the entire loop in the [place] without oxygen and did well. BP is still high but better than it was with the addition of the Cardizem no bradycardia - Physical Exam General: Alert, Oriented x3, Cooperative, No apparent distress HEENT: Atraumatic Oral: Moist Mucosa, No Gingival or Mucosal Lesions/ Ulcerations Neck: Supple Lungs: Clear to auscultation, No wheeze, No rales Cardiovascular: Regular rate, Regular Rhythm, Normal S1, Normal S2, No Gallop Abdomen: Bowel Sounds Present, Soft, Non Tender, Non-Distended Extremities: No edema Skin: No rashes Psych/Mental Status: Normal Affect, Appropriate Vital Signs Temp Pulse Resp BP Pulse Ox 97.8 F 91 16 170/74 H 96 05/14/17 14:20 05/14/17 19:05 05/14/17 19:05 05/14/17 14:20 05/14/17 19:05 Oxygen Flow Rate 2 Oxygen Delivery Method Room Air Weight: 158 lb 11.725 oz Body Mass Index (BMI) 27.1 Intake and Output for Last 24 Hours 05/12/17 05/13/17 05/14/17 23:59 23:59 23:59 Intake Total 2494 / 2494 2141 / 2141 1609 / 1609 Output Total 2200 / 2200 4300 / 4300 1999 / 1999 Balance 294 / 294 -2159 / -2159 -391 / -391 Microbiology Past 72 Hours 05/10/17 19:55 Gram Stain - Final Sputum, Expectorated/Coughed Respiratory Culture - Final Moraxella(Lizz.)Catarrhalis 05/10/17 19:35 Urine Culture - Final Urine, Clean Catch Culture exhibits no growth. Laboratory Tests Past 24 Hrs 05/14/17 17:53 PT 14.9 INR 1.2 APTT 25.2 POC Glucose 05/14/17 05/14/17 05/14/17 16:46 14:08 12:56 POC Glucose 286 H 424 H 457 H* 05/14/17 05/14/17 05/13/17 11:01 06:38 23:09 POC Glucose > 500 H* 264 H 388 H 05/13/17 21:42 POC Glucose 429 H Assessment/Plan Active and Suspected Problems (Last Reviewed 04/17/17 @ 08:45 by Bhumika Barros) COPD (chronic obstructive pulmonary disease) (Acute) Pneumonia (Acute) Impressions 1. HCAP - due to Moxarella Catarrhalis 2. acute exacerbation COPD secondary to pneumonia 3. dehydration - better after IV fluids 4. 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 HTN 6. GERD 7. anemia and thrombocytopenia 8. COPD 9. HLD 10. DM II - possibly related to frequent steroids for exacerbations COPD CT of the chest today to better define what is going on in the R LL.....if it is an effusion then will order a diagnostic thoracentesis for the AM......it may be a post obstructive pneumonia? check a PT/PTT in preparation for thoracentesis Convert to Prednisone in the AM convert to PO Levaquin Possible Dc in the AM Recheck a bmp in the AM Increase the SSI to high dose consult the donor relations officer to educate her in carb control
[2017-05-14] MEDS: Montelukast 10 MG Tablet PO (21:14)
[2017-05-14] MEDS: Pravastatin 40 MG Tablet PO (21:14)
[2017-05-14] MEDS: Mirtazapine 15 MG Tablet PO (21:14)
[2017-05-14 21:40] LABS: Bedside Glucose 363 mg/dL (70-110)
[2017-05-14] MEDS: dilTIAZem CD 240 MG Capsule PO (22:24)
[2017-05-15] VITALS (12 sets, daily range): BP systolic 140–180; BP diastolic 56–80; PULSE 75–92; RESP 16–18; TEMP 36.4–36.6; O2SAT 93–98
[2017-05-15] MEDS: Ipratropium/Albuterol Sulfate 3 ML AMPUL.NEB INHALATION ×3 (00:43→13:29)
[2017-05-15] MEDS: guaiFENesin Dm 10 ML UDC PO (03:17)
[2017-05-15] MEDS: levoFLOXacin 750 MG Tablet PO (05:27)
[2017-05-15 06:51] LABS: Bedside Glucose 209 mg/dL (70-110)
[2017-05-15 07:17] LABS: ALB/GLOB Ratio 0.6 RATIO (0.9-2.4); AST(SGOT) 25 U/L (15-37); Alanine Aminotransfer ALT/SGPT 72 U/L (13-56); Albumin, Serum 2.1 g/dL (3.2-5.0); Alkaline Phosphatase 253 U/L (45-117); Anion Gap 8 (5-15); BUN 18 mg/dL (7-18); BUN/Creat Ratio 36.3 RATIO (10-20); Calcium,Total 8.4 mg/dL (8.5-10.1); Chloride 89 mmol/L (98-107); EST Glomerular Filtration Rate 133 mL/min (>60); Est Glom Filt Rate - Afr Amer 161 mL/min (>60); Estimated Creatinine Clearance 99.45 ml/min; Globulin 3.8 g/dL (2.2-4.2); Glucose 193 mg/dL (74-106); LDH 572 U/L (84-246); Potassium 4.2 mmol/L (3.5-5.1); Protein, Total 5.9 g/dL (6.4-8.2); Sodium Level 127 mmol/L (136-145)
--- NOTE | 2017-05-15 08:00 | US_ITS ---
STUDY: SUPERFICIAL ULTRASOUND - LEFT PLEURAL CAVITY. REASON FOR EXAM: Female, 61 years old. Possible thoracentesis. TECHNIQUE: A superficial ultrasound was performed with real-time and static mendez-scale imaging. COMPARISON: None. FINDINGS: Ultrasound of the left pleural space was performed. Minimal left pleural effusion. This is not amenable to a safe left thoracentesis. US/Chest IMPRESSION: Trace amount of fluid in the left pleural cavity. The thoracentesis was not performed. Electronically Signed: Tavon Zheng MD at 15:00 EST Tel [phone], Service support ,
[2017-05-15] MEDS: guaiFENesin 1,200 MG Tablet 1200 MG PO (08:11)
[2017-05-15] MEDS: Pantoprazole Sodium 40 MG Tablet PO (08:11)
[2017-05-15] MEDS: Metoprolol Tartrate 25 MG Tablet PO (08:11)
[2017-05-15] MEDS: dilTIAZem CD 240 MG Capsule PO (08:11)
[2017-05-15] MEDS: NYSTATIN 500,000 UNIT/5 ML UDC 500000 UNIT PO ×2 (08:11→13:40)
[2017-05-15] MEDS: OLANZapine 10 MG Tablet PO (08:12)
[2017-05-15 12:01] LABS: Bedside Glucose 319 mg/dL (70-110)
--- NOTE | 2017-05-15 15:31 | CASEMGMT ---
ANAHY met with patient and her to offer support and resources. Introduced self and role at [facility]. Patient said she is doing okay other than getting pneumonia and finding out she is diabetic. She was told about her Cancer last May. She is still getting treatment. She has 2 adult children, 4 grandchildren, and now 1 great grandchild. She said her has been very supportive. She said she has been truly blessed. She and her have been for 45 almost 46 years. He said, He isn't ready to get rid of her yet. She is hoping to be discharged today. She thanked ANAHY for checking in with her. She denied any need for resources. Arabella RUIZ MSW
--- NOTE | 2017-05-15 16:10 | DCINST_ITS ---
- Discharge Diagnoses Current Active Problems: Current Active and Chronic Problems (Last Reviewed 04/17/17 @ 08:45 by Bhumika Barros) COPD (chronic obstructive pulmonary disease) (Acute) Pneumonia (Acute) You will use the following diet at home:: No restrictions Your food should be the consistency of: Regular Your liquids should be the consistency of: Regular/Thin Discharge Activity: - - Avoid exposure to any strong smells such as bleach, cleaning products, strong colognes or perfumes, paint fumes and smoke of any kind. Avoid sudden exposure to cold air because this can cause bronchospasm. You may want to cover your mouth when you go outside in the winter. Avoid exposure to anyone who is sick with a cough or sore throat. Call your doctor if you observe: Fever of 101 or Higher, Shortness of breath, Chest pain, - - Rash, painful swallowing or painful sores in your mouth, diarrhea, coughing up blood Additional Instructions: 1. You are now diabetic but, you do not need any medication at this time. Try and follow the restrictions on carbohydrates that the merchandise coordinator discussed with you. The blood sugars really go up with steroids like Decadron and Prednisone. This can make you pee a lot and so you will need to keep hydrated......if your urine is a dark yellow you need to drink more to keep it a pale yellow. 2. The changes on the chest XRAY that I showed you could all be due to the pneumonia. The bacteria that caused the pneumonia is called Moxarella Catarrhalis. It is a common cause of pneumonia in people who are not in the hospital. The chest XRAY always lags the clinical improvement. I am sure Dr. Huerta will be repeating your CT or chest XRAY in the future. 3. STAY AWAY from sick people! If you go out take some hand foam machine operator with you and use it frequently. Stay away from people who are coughing. Eat Well and get plenty of sleep......this help the immune system to function better and most importantly stay as sweet as you are AND HAVE FUN. Allergies/Adverse Reactions: Allergies amlodipine Allergy (Severe, Verified 05/10/17 16:06) Swelling swelling in legs azithromycin Allergy (Severe, Verified 05/10/17 16:06) Pt doesn't remember lisinopril Adverse Reaction (Mild, Verified 05/10/17 16:06) Other COUGH Medications to take at Discharge Montelukast Sodium [Singulair] 10 mg PO QHS 06/08/16 Pravastatin Sodium 40 mg PO QHS 07/17/16 Budesonide/Formoterol 80-4.5 [Symbicort 80-4.5 Mcg Inhaler] 2 puff INHALATION BID 01/22/17 Docusate Sodium [Colace] 100 mg PO DAILY 01/22/17 Metoprolol Tartrate [Lopressor (beta marzena)] 25 mg PO DAILY 01/22/17 Pantoprazole Sodium [Protonix] 20 mg PO DAILY PRN PRN 01/22/17 Acetaminophen [Tylenol Tablet] 325 - 650 mg PO Q6H PRN PRN tablet 01/23/17 Dronabinol [Marinol] 2.5 mg PO BIDAC #60 capsule 01/23/17 Mirtazapine [Remeron] 15 mg PO QHS #30 tab 04/16/17 Olanzapine 10 mg PO DAILY #30 tab 04/16/17 Potassium Phosphate,Monobasic [K-Phos Original] 500 mg PO DAILY #30 tablet.[email or web address] 05/01/17 Dexamethasone 4 mg PO DAILY 05/10/17 Naproxen [Naprosyn] 250 mg PO DAILY PRN PRN 05/10/17 Ondansetron [Zofran] 4 mg PO Q12H PRN PRN 05/10/17 Pyridoxine HCl [Vitamin B-6] 100 mg PO DAILY 05/10/17 Sodium Chloride 1 gm PO TID 05/10/17 Diltiazem CD [Cardizem CD] 240 mg PO DAILY #30 cap 05/15/17 Guaifenesin [Mucinex] 1,200 mg PO BID #20 tab 05/15/17 Levofloxacin [Levaquin] 750 mg PO DAILY@0600 #3 tab 05/15/17 Prednisone 10 mg PO UD #30 tab 05/15/17 The following prescriptions were given: Diltiazem CD [Cardizem CD] 240 mg PO DAILY #30 cap Levofloxacin [Levaquin] 750 mg PO DAILY@0600 #3 tab Prednisone 10 mg PO UD #30 tab Guaifenesin [Mucinex] 1,200 mg PO BID #20 tab Primary Care Physician: Roe Small MD [Primary Care Provider] - Please follow up with your Primary Care Physician in: 5-7 days Please Follow Up With: Kei Huerta MD When: as previously arranged Proposed Discharge Date: 05/15/17
--- NOTE | 2017-05-15 16:14 | PCM.DC.SUM ---
Discharge Date and Diagnosis - Problem List Patient Problems: Active and Suspected Problems (Last Reviewed 04/17/17 @ 08:45 by Bhumika Barros) Pneumonia (Acute) Date of Admission: 05/10/17 Date of Discharge: 05/15/17 - Primary Discharge Diagnosis Active and Suspected Problems (Last Reviewed 04/17/17 @ 08:45 by Bhumika Barros) Pneumonia (Acute) -due to Moxarella Catarrhalis Acute exacerbation of chronic obstructive pulmonary disease (COPD) (Acute) Dehydration (Acute) Thrombocytopenia (Acute) -resolved Hypokalemia-resolved - Secondary Discharge Diagnosis Chronic Problems (Last Reviewed 04/17/17 @ 08:45 by Bhumika Barros) Chronic disease anemia (Chronic) - due to lung CA Diabetes mellitus type 2 in nonobese (Chronic) - NEW diagnosis COPD (chronic obstructive pulmonary disease) (Chronic) HTN (hypertension) (Chronic) Former smoker (Chronic) - quit in July 2016 Colon polyps (Chronic) GERD (gastroesophageal reflux disease) (Chronic) Hyponatremia (Chronic) Bone metastases (Chronic) HLD (hyperlipidemia) (Chronic) Liver metastases (Chronic) Small cell lung cancer (Chronic) Stage 2 moderate COPD by GOLD classification (Chronic) FEV1 54% Hospital Course and Treatment Imaging Results: 05/15/17 08:00 Chest [US] Routine Clinical Impression(s) from Imaging Studies Chest X-Ray 05/10/17 16:20 IMPRESSION: New left lower lobe pneumonia with effusion. Electronically Signed: Teddy Humphrey MD at 17:15 EST , Service support , Chest X-Ray 05/12/17 14:15 IMPRESSION: Persistent left lower lobe infiltrate and left pleural effusion Electronically Signed: Satnam Oswald MD, FACR at 15:23 EST , Service support , Chest CT 05/14/17 15:09 IMPRESSION: Mucous, fluid, or debris noted in the left bronchus. This may suggest an aspiration pneumonia. Metastatic disease to the lungs, liver, and bones. Electronically Signed: Robb Suarez MD at 16:24 EST , Service support , Chest Ultrasound 05/15/17 08:00 IMPRESSION: Trace amount of fluid in the left pleural cavity. The thoracentesis was not performed. Electronically Signed: Tavon Zheng MD at 15:00 EST Tel [phone], Service support , Microbiology 05/10/17 19:55 Sputum, Expectorated/Coughed Gram Stain - Final 05/10/17 19:55 Sputum, Expectorated/Coughed Respiratory Culture - Final Moraxella(Lizz.)Catarrhalis 05/10/17 19:35 Urine, Clean Catch Urine Culture - Final Culture exhibits no growth. 05/10/17 16:49 Blood Culture (Wb) #2 - Left Hand Blood Culture - Preliminary No growth in 48 hours. 05/10/17 16:37 Blood Culture (Wb) - Port Blood Culture - Preliminary No growth in 48 hours. 05/10/17 19:25 Mucosa - Nose Respiratory Panel (PCR) - Final 05/10/17 19:35 Urine, Clean Catch Streptococcus pneumoniae Antigen (M - Final 05/10/17 19:35 Urine, Clean Catch Legionella Antigen - Final Dr. Bhatt-oncology Operations: None Procedures: None Summary of Care Provided: Patient is a 61-year-old female with a past medical history of hypertension, GERD, former smoking hx ( quit 07/2016), hyponatremia, small cell lung cancer with bone metastasis and for metastasis, COPD and HLD who presented to the emergency room at [facility] on 05/10/2017 complaining of cough and shortness of breath. She had been treated in the past with radiation and is currently receiving chemotherapy. Last chemotherapy was 05/01/2017. Vital signs at presentation to the emergency room were temp 98.1, pulse rate 110, blood pressure 183/92, respiratory rate 24 and she was 95-99% saturated on room air. Blood cell count was normal at 6.6 and the percentage neutrophils was 86%. Hemoglobin is 9.2 and this has been steadily decreasing over the past year. Platelets were low at 130,000. Potassium was low at 3.2 and BUN was elevated at 22 with a creatinine of 0.56. Random glucose was 190 and the hemoglobin A1c is 7.0. Legionella and streptococcal antigens in the urine were negative and the respiratory panel was also negative. Sputum Gram stain showed 2+ white blood cells and 2+ gram-positive cocci in chains and clusters. The final culture revealed Moxarella Catarrhalis. Cultures had no growth. The radiologist reported a L side pleural effusion and a CT chest was obtained to better evaluate the left lower chest. It showed no pleural effusion but, there was consolidation in the LLL with air bronchograms. This was not present on a CT chest done in January of 2017. This is the area that was irradiated so I am not sure if this is due to radiation pneumonitis, Moxarella Catarrhalis pneumonia, or post obstructive pneumonia. She was initially treated with Zosyn and vancomycin for suspected HCAP. When the culture came back with Moxarella Catarrhalis the antibiotic spectrum was narrowed to Levaquin 750 mg p.o. daily. She was treated with high-dose intravenous steroids during her hospital stay which cause significant hyperglycemia. The blood sugar started to come down with conversion to prednisone. Since her hemoglobin A1c is only 7% I elected not to place her on any oral hypoglycemic agents but had the dietitian instruct her in carbohydrate control. Diabetes mellitus is a new diagnosis for her. She was advised to drink enough water to keep her urine a pale yellow while she is on the prednisone because she will tend to have polyuria secondary to hyperglycemia. Sodium on the day of discharge was mildly decreased at 127 but she was off her sodium supplement while in the hospital. Potassium remained within normal limits following supplementation. She was discharged home on 05/15/2017 and her vital signs at the time of discharge were 7.5, pulse rate 83, blood pressure 140/62 to 162/74, respiratory rate 18 and she was 94-95% saturated on room air at rest. The pulse ox on room air with ambulation was 93%. Reported that she felt much better. Auscultation of her lungs at that time revealed much improved air exchange with decreased breath sounds in the left lower lobe and very rare expiratory wheeze. He was discharged home with a prescription for Levaquin 750 mg and instructed to take 1 daily until gone. She was also given a tapering dose of prednisone. She will resume her sodium chloride supplement 3 times daily. She was given a requisition to obtain a BMP 5 days and will follow up with Dr. Small in the office in 5-7 days. She will follow up with Dr. Huerta previously scheduled. This note was generated with [employer] dictation software. It may contain incorrect words, spelling, and punctuation that were not noted in checking the note before signing. Discharge Diet: Carb Control Diet Discharge Activity: - - Avoid exposure to any strong smells such as bleach, cleaning products, strong colognes or perfumes, paint fumes and smoke of any kind. Avoid sudden exposure to cold air because this can cause bronchospasm. You may want to cover your mouth when you go outside in the winter. Avoid exposure to anyone who is sick with a cough or sore throat. Call your doctor if you observe: Fever of 101 or Higher, Shortness of breath, Chest pain, - - Rash, painful swallowing or painful sores in your mouth, diarrhea, coughing up blood Home Medications: Medications to take at Discharge Montelukast Sodium [Singulair] 10 mg PO QHS 06/08/16 Pravastatin Sodium 40 mg PO QHS 07/17/16 Budesonide/Formoterol 80-4.5 [Symbicort 80-4.5 Mcg Inhaler] 2 puff INHALATION BID 01/22/17 Docusate Sodium [Colace] 100 mg PO DAILY 01/22/17 Metoprolol Tartrate [Lopressor (beta marzena)] 25 mg PO DAILY 01/22/17 Pantoprazole Sodium [Protonix] 20 mg PO DAILY PRN PRN 01/22/17 Acetaminophen [Tylenol Tablet] 325 - 650 mg PO Q6H PRN PRN tablet 01/23/17 Dronabinol [Marinol] 2.5 mg PO BIDAC #60 capsule 01/23/17 Mirtazapine [Remeron] 15 mg PO QHS #30 tab 04/16/17 Olanzapine 10 mg PO DAILY #30 tab 04/16/17 Potassium Phosphate,Monobasic [K-Phos Original] 500 mg PO DAILY #30 tablet.[email or web address] 05/01/17 Dexamethasone 4 mg PO DAILY 05/10/17 Naproxen [Naprosyn] 250 mg PO DAILY PRN PRN 05/10/17 Ondansetron [Zofran] 4 mg PO Q12H PRN PRN 05/10/17 Pyridoxine HCl [Vitamin B-6] 100 mg PO DAILY 05/10/17 Sodium Chloride 1 gm PO TID 05/10/17 Diltiazem CD [Cardizem CD] 240 mg PO DAILY #30 cap 05/15/17 Guaifenesin [Mucinex] 1,200 mg PO BID #20 tab 05/15/17 Levofloxacin [Levaquin] 750 mg PO DAILY@0600 #3 tab 05/15/17 Prednisone 10 mg PO UD #30 tab 05/15/17 Following Prescrptions Were Given to Patient: Diltiazem CD [Cardizem CD] 240 mg PO DAILY #30 cap Levofloxacin [Levaquin] 750 mg PO DAILY@0600 #3 tab Prednisone 10 mg PO UD #30 tab Guaifenesin [Mucinex] 1,200 mg PO BID #20 tab Primary Care Physician: Roe Small MD [Primary Care Provider] - Please follow up with your Primary Care Physician in: 5-7 days Please Follow Up With: Kei Huerta MD When: as previously arranged Disposition: Home Minutes spent on discharge:: 35 Patient Condition:: Stable Meaningful Use Info Meaningful Use Diagnoses (Choose all that apply): None applicable Code Visit Inpatient E&M: 66073 Disch Hosp
--- NOTE | 2017-05-15 16:19 | DS.PCM_ITS ---
Discharge Date and Diagnosis - Problem List Patient Problems: Active and Suspected Problems (Last Reviewed 04/17/17 @ 08:45 by Bhumika Barros) Pneumonia (Acute) Date of Admission: 05/10/17 Date of Discharge: 05/15/17 - Primary Discharge Diagnosis Active and Suspected Problems (Last Reviewed 04/17/17 @ 08:45 by Bhumika Barros) Pneumonia (Acute) -due to Moxarella Catarrhalis Acute exacerbation of chronic obstructive pulmonary disease (COPD) (Acute) Dehydration (Acute) Thrombocytopenia (Acute) -resolved Hypokalemia-resolved - Secondary Discharge Diagnosis Chronic Problems (Last Reviewed 04/17/17 @ 08:45 by Bhumika Barros) Chronic disease anemia (Chronic) - due to lung CA Diabetes mellitus type 2 in nonobese (Chronic) - NEW diagnosis COPD (chronic obstructive pulmonary disease) (Chronic) HTN (hypertension) (Chronic) Former smoker (Chronic) - quit in July 2016 Colon polyps (Chronic) GERD (gastroesophageal reflux disease) (Chronic) Hyponatremia (Chronic) Bone metastases (Chronic) HLD (hyperlipidemia) (Chronic) Liver metastases (Chronic) Small cell lung cancer (Chronic) Stage 2 moderate COPD by GOLD classification (Chronic) FEV1 54% Hospital Course and Treatment Imaging Results: 05/15/17 08:00 Chest [US] Routine Clinical Impression(s) from Imaging Studies Chest X-Ray 05/10/17 16:20 IMPRESSION: New left lower lobe pneumonia with effusion. Electronically Signed: Teddy Humphrey MD at 17:15 EST , Service support , Chest X-Ray 05/12/17 14:15 IMPRESSION: Persistent left lower lobe infiltrate and left pleural effusion Electronically Signed: Satnam Oswald MD, FACR at 15:23 EST , Service support , Chest CT 05/14/17 15:09 IMPRESSION: Mucous, fluid, or debris noted in the left bronchus. This may suggest an aspiration pneumonia. Metastatic disease to the lungs, liver, and bones. Electronically Signed: Robb Suarez MD at 16:24 EST , Service support , Chest Ultrasound 05/15/17 08:00 IMPRESSION: Trace amount of fluid in the left pleural cavity. The thoracentesis was not performed. Electronically Signed: Tavon Zheng MD at 15:00 EST Tel [phone], Service support , Microbiology 05/10/17 19:55 Sputum, Expectorated/Coughed Gram Stain - Final 05/10/17 19:55 Sputum, Expectorated/Coughed Respiratory Culture - Final Moraxella(Lizz.)Catarrhalis 05/10/17 19:35 Urine, Clean Catch Urine Culture - Final Culture exhibits no growth. 05/10/17 16:49 Blood Culture (Wb) #2 - Left Hand Blood Culture - Preliminary No growth in 48 hours. 05/10/17 16:37 Blood Culture (Wb) - Port Blood Culture - Preliminary No growth in 48 hours. 05/10/17 19:25 Mucosa - Nose Respiratory Panel (PCR) - Final 05/10/17 19:35 Urine, Clean Catch Streptococcus pneumoniae Antigen (M - Final 05/10/17 19:35 Urine, Clean Catch Legionella Antigen - Final Dr. Bhatt-oncology Operations: None Procedures: None Summary of Care Provided: Patient is a 61-year-old female with a past medical history of hypertension , GERD, former smoking hx ( quit 07/2016), hyponatremia, small cell lung cancer with bone metastasis and for metastasis, COPD and HLD who presented to the emergency room at [facility] on 05/10/2017 complaining of cough and shortness of breath. She had been treated in the past with radiation and is currently receiving chemotherapy. Last chemotherapy was 05/01/2017. Vital signs at presentation to the emergency room were temp 98.1, pulse rate 110, blood pressure 183/92, respiratory rate 24 and she was 95-99% saturated on room air. Blood cell count was normal at 6.6 and the percentage neutrophils was 86% . Hemoglobin is 9.2 and this has been steadily decreasing over the past year. Platelets were low at 130,000. Potassium was low at 3.2 and BUN was elevated at 22 with a creatinine of 0.56. Random glucose was 190 and the hemoglobin A1c is 7.0. Legionella and streptococcal antigens in the urine were negative and the respiratory panel was also negative. Sputum Gram stain showed 2+ white blood cells and 2+ gram-positive cocci in chains and clusters. The final culture revealed Moxarella Catarrhalis. Cultures had no growth. The radiologist reported a L side pleural effusion and a CT chest was obtained to better evaluate the left lower chest. It showed no pleural effusion but, there was consolidation in the LLL with air bronchograms. This was not present on a CT chest done in January of 2017. This is the area that was irradiated so I am not sure if this is due to radiation pneumonitis, Moxarella Catarrhalis pneumonia, or post obstructive pneumonia. She was initially treated with Zosyn and vancomycin for suspected HCAP. When the culture came back with Moxarella Catarrhalis the antibiotic spectrum was narrowed to Levaquin 750 mg p.o. daily. She was treated with high-dose intravenous steroids during her hospital stay which cause significant hyperglycemia. The blood sugar started to come down with conversion to prednisone. Since her hemoglobin A1c is only 7% I elected not to place her on any oral hypoglycemic agents but had the dietitian instruct her in carbohydrate control. Diabetes mellitus is a new diagnosis for her. She was advised to drink enough water to keep her urine a pale yellow while she is on the prednisone because she will tend to have polyuria secondary to hyperglycemia. Sodium on the day of discharge was mildly decreased at 127 but she was off her sodium supplement while in the hospital. Potassium remained within normal limits following supplementation. She was discharged home on 05/15/2017 and her vital signs at the time of discharge were 7.5, pulse rate 83, blood pressure 140/62 to 162/74, respiratory rate 18 and she was 94-95% saturated on room air at rest. The pulse ox on room air with ambulation was 93%. Reported that she felt much better. Auscultation of her lungs at that time revealed much improved air exchange with decreased breath sounds in the left lower lobe and very rare expiratory wheeze. He was discharged home with a prescription for Levaquin 750 mg and instructed to take 1 daily until gone. She was also given a tapering dose of prednisone. She will resume her sodium chloride supplement 3 times daily. She was given a requisition to obtain a BMP 5 days and will follow up with Dr. Small in the office in 5-7 days. She will follow up with Dr. Huerta previously scheduled. This note was generated with [employer] dictation software. It may contain incorrect words, spelling, and punctuation that were not noted in checking the note before signing. Discharge Diet: Carb Control Diet Discharge Activity: - - Avoid exposure to any strong smells such as bleach, cleaning products, strong colognes or perfumes, paint fumes and smoke of any kind. Avoid sudden exposure to cold air because this can cause bronchospasm. You may want to cover your mouth when you go outside in the winter. Avoid exposure to anyone who is sick with a cough or sore throat. Call your doctor if you observe: Fever of 101 or Higher, Shortness of breath, Chest pain, - - Rash, painful swallowing or painful sores in your mouth, diarrhea, coughing up blood Home Medications: Medications to take at Discharge Montelukast Sodium [Singulair] 10 mg PO QHS 06/08/16 Pravastatin Sodium 40 mg PO QHS 07/17/16 Budesonide/Formoterol 80-4.5 [Symbicort 80-4.5 Mcg Inhaler] 2 puff INHALATION BID 01/22/17 Docusate Sodium [Colace] 100 mg PO DAILY 01/22/17 Metoprolol Tartrate [Lopressor (beta marzena)] 25 mg PO DAILY 01/22/17 Pantoprazole Sodium [Protonix] 20 mg PO DAILY PRN PRN 01/22/17 Acetaminophen [Tylenol Tablet] 325 - 650 mg PO Q6H PRN PRN tablet 01/23/17 Dronabinol [Marinol] 2.5 mg PO BIDAC #60 capsule 01/23/17 Mirtazapine [Remeron] 15 mg PO QHS #30 tab 04/16/17 Olanzapine 10 mg PO DAILY #30 tab 04/16/17 Potassium Phosphate,Monobasic [K-Phos Original] 500 mg PO DAILY #30 tablet.carolina 05/01/17 Dexamethasone 4 mg PO DAILY 05/10/17 Naproxen [Naprosyn] 250 mg PO DAILY PRN PRN 05/10/17 Ondansetron [Zofran] 4 mg PO Q12H PRN PRN 05/10/17 Pyridoxine HCl [Vitamin B-6] 100 mg PO DAILY 05/10/17 Sodium Chloride 1 gm PO TID 05/10/17 Diltiazem CD [Cardizem CD] 240 mg PO DAILY #30 cap 05/15/17 Guaifenesin [Mucinex] 1,200 mg PO BID #20 tab 05/15/17 Levofloxacin [Levaquin] 750 mg PO DAILY@0600 #3 tab 05/15/17 Prednisone 10 mg PO UD #30 tab 05/15/17 Following Prescrptions Were Given to Patient: Diltiazem CD [Cardizem CD] 240 mg PO DAILY #30 cap Levofloxacin [Levaquin] 750 mg PO DAILY@0600 #3 tab Prednisone 10 mg PO UD #30 tab Guaifenesin [Mucinex] 1,200 mg PO BID #20 tab Primary Care Physician: Roe Small MD [Primary Care Provider] - Please follow up with your Primary Care Physician in: 5-7 days Please Follow Up With: Kei Huerta MD When: as previously arranged Disposition: Home Minutes spent on discharge:: 35 Patient Condition:: Stable Meaningful Use Info Meaningful Use Diagnoses (Choose all that apply): None applicable Code Visit Inpatient E&M: 27919 Disch Hosp
== END 2017-05-15 17:12 | disposition home or self-care (01) | DRG 871 ==
LOC: ED 17:06 → MS3 18:13
PROVIDERS: Family Medicine; Admitting Provider Hospitalist; Emergency Provider Emergency Medicine; Family Provider Family Medicine; PCP Family Medicine; Visit Provider Internal Medicine
DX: A41.9 Sepsis, unspecified organism (principal); J16.8 Pneumonia due to other specified infectious organisms; C78.7 Secondary malignant neoplasm of liver and intrahepatic bile duct; C79.51 Secondary malignant neoplasm of bone; E87.1 Hypo-osmolality and hyponatremia; D64.81 Anemia due to antineoplastic chemotherapy; D69.59 Other secondary thrombocytopenia; C34.90 Malignant neoplasm of unspecified part of unspecified bronchus or lung; J44.0 Chronic obstructive pulmonary disease with (acute) lower respiratory infection; J44.1 Chronic obstructive pulmonary disease with (acute) exacerbation; B99.8 Other infectious disease; Y95 Nosocomial condition; I10 Essential (primary) hypertension; Z87.891 Personal history of nicotine dependence; K21.9 Gastro-esophageal reflux disease without esophagitis; E78.5 Hyperlipidemia, unspecified; E87.6 Hypokalemia; Z79.899 Other long term (current) drug therapy; E86.0 Dehydration; E09.9 Drug or chemical induced diabetes mellitus without complications; T38.0X5A Adverse effect of glucocorticoids and synthetic analogues, initial encounter; Y92.89 Other specified places as the place of occurrence of the external cause; T45.1X5A Adverse effect of antineoplastic and immunosuppressive drugs, initial encounter
CPT/HCPCS: 36415; 36591; 71045; 71046; 71250; 76604; 80048; 80053; 80202; 81002; 82962; 83036; 83605; 83615; 83735; 83880; 84100; 85025; 85027; 85610; 85730; 87040; 87070; 87077; 87086; 87205; 87449; 87633; 87641; 93005; 94640; 94667; 94668; 97802; 97803; 99284; J7030; A4216

== ENCOUNTER → 2017-05-30 07:40 | Outpatient (CLI) | payer OTHER, SELFPAY ==
[2017-04-08 12:53] VITALS: BMI 25.7
--- NOTE | 2017-05-30 08:35 | MRI_ITS ---
STUDY: MRI BRAIN WITH AND WITHOUT CONTRAST REASON FOR EXAM: Female, 62 years old. History of lung carcinoma with dizziness and frequent falls. TECHNIQUE: Standardized multiplanar fat and water weighted pulse sequences were obtained. 7 ml of Gadavist contrast material was administered intravenously for the contrast portion of the examination. COMPARISON: MRI BRAIN-January 22, 2017 FINDINGS: There is mild cerebral atrophy with widening of the extra-axial spaces and ventricular dilatation. There are a limited number of small white matter hyperintensities, distributed throughout the deep white matter tracts of the cerebral hemispheres which have increased in number as compared to the prior examination of January 22, 2017, consistent with mild chronic white matter ischemic changes. There is no evidence for recent intracranial ischemia or other cause of cytotoxic edema on diffusion weighted imaging (DWI). Normal T2* images of the brain without demonstrated susceptibility artifact. There is no demonstrated hemosiderin stain. Normal bilateral basal ganglia. Normal thalami. There is no extra-axial fluid accumulation. Normal flow voids within the major intracranial circulation suggesting patency by spin echo criteria. Normal venous enhancement. There is no enhancing intra-axial or extra-axial abnormality. No demonstrated intracranial metastasis. There is enlargement of the sella turcica with increased CSF within the sella and flattening of the pituitary gland consistent with an empty sellar syndrome. Normal infundibular stalk, hypothalamus, and optic chiasm. Normal tectal plate and pineal gland. There are chronic white matter ischemic changes of the jovanni. The midbrain and medulla are otherwise normal. Normal cerebellum. Normal basal cisterns. Normal bilateral temporal bones. Normal bilateral internal auditory canals. No demonstrated orbital abnormality, within the constraints of a routine brain study. Normal visualized paranasal sinuses. Normal calvarium and skull base. Normal visualized soft tissue structures. There is homogeneous decreased attenuation of the C3 vertebra, unchanged compared the prior examination of January 22, 2017, most likely representing metastatic disease to the cervical spine. MRI/Brain W/WO Contrast IMPRESSION: 1. Chronic white matter ischemic changes of the supratentorial brain and jovanni, with increasing involvement of the supratentorial brain. 2. No intracranial metastasis. 3. Homogeneous decreased attenuation C3 vertebra, unchanged as compared the prior examination of January 22, 2017, most likely representing metastatic disease. Electronically Signed: Randy Barclay DO at 12:27 EST Tel , Service support ,
== END ==
PROVIDERS: Family Provider Family Medicine; PCP Family Medicine; Visit Provider Internal Medicine Medical Oncology
DX: R26.89 Other abnormalities of gait and mobility (principal); R63.4 Abnormal weight loss; R11.0 Nausea; C34.90 Malignant neoplasm of unspecified part of unspecified bronchus or lung; C78.7 Secondary malignant neoplasm of liver and intrahepatic bile duct; C79.51 Secondary malignant neoplasm of bone; Z79.899 Other long term (current) drug therapy; W19.XXXA Unspecified fall, initial encounter
CPT/HCPCS: 70553; A9585; A4216

== ENCOUNTER → 2017-06-16 13:14 | Outpatient (CLI) | payer OTHER, SELFPAY ==
[2017-04-08 12:53] VITALS: BMI 25.7
--- NOTE | 2017-06-16 13:18 | CT_ITS ---
STUDY: CT ABDOMEN AND PELVIS WITH CONTRAST REASON FOR EXAM: Female, 62 years old. Small cell lung cancer with liver and bone metastases. Patient on chemotherapy. RADIATION DOSAGE (If Supplied By Facility): CTDIvol = ( 12.58 ) mGy, DLP = ( 919.41 ) mGycm TECHNIQUE: Transaxial images were obtained from the dome of the diaphragm to the symphysis pubis without oral contrast. 100CC ml of Isovue 300 contrast was administered. Sagittal and coronal images were reconstructed. Individualized dose optimization techniques were used for this CT. COMPARISON: CT of the chest, June 16, 2017. CT of the abdomen, March 27, 2017. FINDINGS: Please refer to the CT of the chest performed the same day for discussion of these supradiaphragmatic findings. The liver appears diffusely fatty infiltrated. There is a low-attenuation lesion in the medial aspect of the segment 7 of the liver measuring 1.4 cm in diameter thought to represent a metastasis. There is an irregular low attenuation lesions seen in segment IVb of the liver thought to represent metastasis (image 30, series 3). There is also a low-attenuation lesion seen in segment 3 of the liver measuring 1.3 cm in diameter best seen on image 32. On image 35 there is a hypodensity in the lateral right liver measuring 1.4 x 1.1 cm in size. Slightly more anteriorly there is a vague area of hypodensity without distinct mass. In segment IVb at this level there is a target lesion measuring 1.8 cm in diameter. On image 39 there is a 4.3 x 3.6 cm enhancing lesion with central hypodensity and the right liver. Immediately adjacent there is a 3.9 x 3.3 cm enhancing lesion with low attenuation which may extend up to include the hypodensity described in this area on image 37. He findings are consistent with the multiple metastatic lesions seen on the all previous study although there is slightly less clearly defined on today's examination. Most appear equal or slightly enlarged in size. Normal gallbladder and extrahepatic biliary system. Normal spleen. Normal pancreas. Normal bilateral adrenal glands. Normal right kidney. Normal left kidney. Normal visualized stomach. Normal small intestine. There is diffuse wall thickening throughout the colon which may be due to nondistention or represent colitis. The appendix is not clearly identified. There is diffuse atherosclerotic calcification of the abdominal aorta, without a demonstrated aneurysm. Normal inferior vena cava. Normal retroperitoneum. Normal urinary bladder. Normal uterus and ovaries. There is no pelvic lymphadenopathy or mass. No free air or free fluid is seen within the peritoneal cavity. Normal abdominal wall. There is sclerosis involving T10-T12 suspicious for metastatic disease. There is sclerosis anteriorly and bilateral eighth ribs which may represent metastatic disease. There is also sclerosis of the L2 and L4 vertebra, the sacrum, bilateral brock and the bilateral femoral heads, suspicious for metastatic disease. CT/Abdomen/Pelvis WITH Contrast IMPRESSION: 1. Diffuse metastatic disease to the liver. These appear increased in size from the prior CT. 2. Diffuse bony metastases throughout the lumbar spine and pelvis. This appears progressive when compared to the previous examination. 3. Question colitis versus nondistended colon. Electronically Signed: Ghanshyam Doe DO at 14:35 EDT Tel [phone], Service support ,
--- NOTE | 2017-06-16 13:18 | CT_ITS ---
STUDY: CT CHEST WITH CONTRAST REASON FOR EXAM: Female, 62 years old. Small cell lung cancer with liver and bone metastases. Patient on chemotherapy. RADIATION DOSAGE (If Supplied By Facility): CTDIvol = ( 12.58 ) mGy, DLP = ( 919.41 ) mGycm TECHNIQUE: Transaxial imaging was performed following intravenous administration of 100CC ml of Isovue 300 contrast material. PICC line Individualized dose optimization techniques were used for this CT. COMPARISON: May 14, 2017. FINDINGS: There is a right jugular Port-A-Cath with its tip at the atrial caval junction. The lungs are mildly hyperexpanded. There is mild air trapping as well as vague groundglass densities in the upper lobes. There is partial consolidation of the medial aspect of the left lower lobe with mild bronchiectasis. There is evidence of mild associated pleural effusion. There are consolidations in this area on the prior study has almost completely resolved. Normal heart and pericardium. There are calcifications of the coronary arteries. There is decreased mediastinal lymphadenopathy. There is a prevascular lymph node at the level of the before meals. Window now measuring 1.9 x 0.5 cm. This previously measured 2.4 x 6 mm. There is no real change in the precarinal lymph node. Normal hilar regions. Normal enhanced pulmonary arteries. There is atherosclerotic calcification of the aortic arch with tortuosity and elongation of the aortic arch and descending thoracic aorta. There are focal areas of sclerosis in the upper sternum and involving the seventh and eighth vertebral. There is involvement of both the 10th 11th and 12th vertebrae as well. There is involvement of the anterior left third rib as well as the right fifth sixth and seventh ribs and the left sixth, seventh and eighth ribs. There is also sclerosis involving the left scapula. There is diffuse fatty infiltration of the liver. There is a ringlike area of higher density in the posterior lower right liver measuring 2.6 cm in diameter. This suggests a metastasis. The remainder the visualized abdomen appears grossly normal. CT/Chest WITH Contrast IMPRESSION: 1. Marked improvement in consolidation of the medial left lower lobe with only minor residual consolidation noted. 2. Small left pleural effusion. 3. Mild emphysematous changes lungs. There is minimal groundglass densities in the right upper lobe previously seen which may represent new infiltrate or metastatic change. 4. Multiple bony metastases. 5. Hepatic metastasis. Electronically Signed: Ghanshyam Doe DO at 14:21 EDT Tel [phone], Service support ,
== END ==
PROVIDERS: Family Provider Family Medicine; PCP Family Medicine; Visit Provider Internal Medicine Medical Oncology
DX: C34.02 Malignant neoplasm of left main bronchus (principal); C78.7 Secondary malignant neoplasm of liver and intrahepatic bile duct; C79.51 Secondary malignant neoplasm of bone
CPT/HCPCS: 71260; 74177; Q9967; A4216